=== PATIENT | male | born 1960 | race Caucasian/White ===

== ENCOUNTER → 2020-09-24 11:00 | Outpatient (CLI) | payer OTHER, SELFPAY ==
--- NOTE | ~2020-09-24 | CT_ITS ---
EXAMINATION: CT diagnostic chest wo con DATE: 09/24/2020 11:17 INDICATION: Localized swelling of the right side of the back TECHNIQUE: Computed tomography (CT) of the chest was performed without intravenous contrast. The dose -length product (DLP) was 262.96 mGy-cm. 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 COMPARISON: Radiographs dated 06/09/2018 FINDINGS: No suspicious CT correlate is identified in the marked area of swelling in the right back. There is a 3 mm nodule of the right upper lobe on image 49. There is mild emphysema. The lungs are fr ee of focal airspace opacities. There is no pleural effusion or pneumothorax. No pathologically enlar ged thoracic lymph nodes are identified. The heart size is normal. Calcified coronary artery atherosc lerosis is noted. There is mild circumferential wall thickening of the distal esophagus. Punctate iwona cifications in an otherwise normal spleen likely represent healed granulomatous disease. Severe lumba r spondylosis is noted. There are chronic mild compression deformities of the T4, T6, and T11 vertebr al bodies. There is also an old healed sternal manubrial fracture. IMPRESSION: 1. No CT correlate for the patient's symptoms. 2. Mild circumferential wall thickening of the esophagus. Correlate for reflux and esophageal symptom s. Consider endoscopy. 3. 3 mm nodule of the right upper lobe, likely old granulomatous disease. Consider follow-up CT in 12 months. Reviewed, dictated and finalized at location A. IMPRESSION: 1. No CT correlate for the patient's symptoms. 2. Mild circumferential wall thickening of the esophagus. Correlate for reflux and esophageal symptoms. Consider endoscopy. 3. 3 mm nodule of the right upper lobe, likely old granulomatous disease. Consi gurdeep follow-up CT in 12 months.
== END ==
PROVIDERS: PCP Pediatrics; Visit Provider Pediatrics
DX: R91.1 Solitary pulmonary nodule (principal)
CPT/HCPCS: 71250

== ENCOUNTER 2020-10-14 06:37 | Outpatient (CLI) | payer OTHER, SELFPAY ==
--- NOTE | ~2020-10-14 | MR_ITS ---
EXAMINATION: MR chest wo/w con DATE: 10/14/2020 08:59 INDICATION: Localized swelling/lump at the posterior right thorax. TECHNIQUE: Magnetic resonance imaging (MRI) of the right posterior and lateral chest was performed wi thout and with 16 mL Multihance intravenous contrast. A marker was placed over the mass. Sequences i ncluded axial, sagittal and coronal T1-weighted FSE and fluid sensitive FSE STIR, axial T1-weighted F S FSE and axial, sagittal and coronal T1-weighted FS FSE. COMPARISON: CT dated 09/24/2020 FINDINGS: Caudal to the inferior tip of the scapula is a 5.6 x 6.7 x 2.3 cm mass demonstrating homogeneous fat signal consistent with a lipoma located along the posterior margin of the right serratus anterior and deep to the latissimus dorsi muscle. There is no abnormal enhancing soft tissue component. No other masses identified. There is dependent atelectasis in the bilateral lower lobes. Heart size is normal. No pericardial effusion. There are few subcentimeter T2 hyperintense nonenhancing cysts in the bilat eral kidneys. Liver, spleen, pancreas and bilateral adrenal glands are normal. No pathologically enla rged thoracic or upper abdominal lymphadenopathy. Moderate upper lumbar spondylosis. IMPRESSION: 1. The palpable abnormality of concern corresponds to a 5.6 x 6.7 x 2.3 cm lipoma deep to the right l atissimus dorsi muscle. Reviewed, dictated and finalized at location A. IMPRESSION: 1. The palpable abnormality of concern corresponds to a 5.6 x 6.7 x 2.3 cm lipo ma deep to the right latissimus dorsi muscle.
[2020-10-14 07:25] LABS: Estimated Glomerular Filt Rate > 60
== END 2020-10-14 06:38 | disposition home or self-care (01) ==
LOC: ANHIMG 06:48
PROVIDERS: PCP Pediatrics; Visit Provider Pediatrics
DX: R22.2 Localized swelling, mass and lump, trunk (principal); N28.1 Cyst of kidney, acquired
CPT/HCPCS: 71552; A9577

== ENCOUNTER 2020-11-06 02:15 | Day surgery (SDC) | payer OTHER, SELFPAY ==
[2020-11-03 10:40] VITALS: BMI 24.9
[2020-11-06 07:49] VITALS: BP 154/88; PULSE 80; RESP 20; TEMP 36.8; O2SAT 100
[2020-11-06] MEDS: LACTATED RINGERS 1,000 ML 30 ML IV CONT (07:55)
--- NOTE | 2020-11-06 08:17 | WPDANESEPPF ---
Anes - Initial Pre Proc Eval Procedure: Operation Date: 11/06/20 09:30 Proposed Procedures p Excision Lipoma Right Posterior Lateral Chest Wall - Javid Younger MD Date/Time: 11/06/20 08:17 Surgeon: Javid Younger MD Pre Op Diagnosis: lipoma right posterior lateral chest Patient Data Age: 60 Gender: M Height: 1.83 m Weight: 80.7 kg Last Vital Signs Temp 36.8 C 11/06/20 07:49 Pulse 80 11/06/20 07:49 Resp 20 11/06/20 07:49 BP 154/88 H 11/06/20 07:49 Pulse Ox 100 11/06/20 07:49 Allergies Allergy/AdvReac Type Severity Reaction Status Date / Time No Known Allergies Allergy Verified 11/03/20 10:27 Home Medications Medication Instructions Recorded Confirmed Type ibuprofen 200 mg capsule 200 mg PO Q6H PRN 10/21/20 11/06/20 History sildenafil 50 mg tablet 50 mg PO WEEKLY PRN 10/21/20 11/06/20 History acetaminophen [Acetaminophen Extra 1,000 mg PO Q6H PRN 11/06/20 11/06/20 History Strength] Patient hx anesthesia problems: none Family hx anesthesia problems: none PMFSH Past Medical History Medical History COPD (chronic obstructive pulmonary disease) Surgical History Surgical History History of appendectomy Family History Family History Father , age 70 Acute myocardial infarction Mother , age 70 Acute myocardial infarction Other Heart disease Social History Social History Smoking packs per day: 1 Smoking cigarettes per day: 20.0 Years smoked: 48 Smoking pack-years: 48.00 Smoking status: Current every day smoker Tobacco type: cigarettes Second hand tobacco smoke exposure: Yes Alcohol intake: current Drinks per week: 24 Alcohol use details: BEER Substance use: never Living arrangements: with family 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 Questions were solicited and answers provided to the satisfaction of the patient/family/POA.
--- NOTE | 2020-11-06 08:46 | WPDHPUPDATE1 ---
History and Physical Update Update Date/Time: 11/06/20 08:46 History and Physical has been reviewed, including an updated exam of the patient. There are NO changes in the patient's condition. Risks, benefits, and alternatives have been discussed and questions answered. Patient agrees to proceed with procedure.
[2020-11-06] MEDS: BUPIVACAINE/EPINEPHRINE 0.5% 10 ML VIAL 20 ML INFILTRATE (09:07)
--- NOTE | 2020-11-06 09:59 | P.OP_ITS ---
Procedure Note - Detailed Date of Procedure 11/06/20 Pre-op Diagnosis submuscular lipoma right posterior lateral chest Post-op Diagnosis same Procedure Performed excision of submuscular lipoma 8 x 7 x 2 cm right posterior back. Surgeon Javid Younger MD Assistant Professor Of Chemistry LEONIDAS Christensen, OR 1st assist Anesthesia general ( Via LMA) Indications The patient has developed a movable soft mass deep to the muscle on his right posterior back which is causing him discomfort with lifting Findings a soft pliable apparent lipoma deep to the latissimus baeza muscle right posterior back Description of Procedure The patient was brought to the operating room and placed in the left lateral decubitus position with both arms out on arm boards on the operating table. Following the induction of general LMA anesthesia patient was positioned as noted above and time-out was performed confirming patient and site of surgery after a prep and drape with chlorhexidine. The site of the lipoma on his right posterior back laterally was well exposed. Following this local anesthetic was instilled along a curvilinear line outlined directly over the palpable movable mass. We made an approximate 10 cm incision and carried this down through the subcutaneous tissues and through the initial fascia over the latissimus dorsi muscle. We then carefully palpated it and it seemed like the lipoma was still directly below so I split the muscle for about 4 cm in length at this area and then we were able to grasp the underlying lipoma and gradually dissected it out from underneath the muscle. Upon removal it measured 8 x 7 x 2 cm in size. There were multiple small feeding vessels that were cauterized underneath it. There was 1 larger vessel that was suture ligated with a 3-0 Vicryl as we excised the lesion. We rechecked hemostasis and injected more local anesthetic at this point. Following this closure was begun after passing the specimen off the field. Closure was obtained by reapproximating the muscle and its fascia with a running 0 Vicryl suture the superficial fascia just underneath the subcutaneous fat was also approximated in a running running manner with the 0 Vicryl. Following this multiple interrupted 3 0 Vicryl were placed in subcutaneous tissues and a running subcuticular closure of 4 0 on diet Monocryl was accomplished. Following this wound was clean dried and surgical glue applied. Estimated blood loss about 5 cc The patient tolerated procedure well. Implants None Estimated Blood Loss 5 Drains No Packing No Pathology yes ( lipoma) Complications No immediate complications Condition stable Disposition PACU
[2020-11-06 10:08] VITALS: BP 107/67; PULSE 68; RESP 13; O2SAT 96
[2020-11-06 11:01] VITALS: BP 153/94; PULSE 61; RESP 16
== END 2020-11-06 11:16 | disposition home or self-care (01) ==
PROVIDERS: PCP Pediatrics; Visit Provider Surgery
PROC: (CPT 21554; principal; 2020-11-06 09:30)
DX: D17.1 Benign lipomatous neoplasm of skin and subcutaneous tissue of trunk (principal); J44.9 Chronic obstructive pulmonary disease, unspecified; K22.8 Other specified diseases of esophagus; F17.210 Nicotine dependence, cigarettes, uncomplicated
CPT/HCPCS: 21554; 88304; J2704; J3010; J7120

== ENCOUNTER 2023-11-10 14:01 | Outpatient (CLI) | payer OTHER, SELFPAY ==
--- NOTE | ~2023-11-10 | MR_ITS ---
EXAMINATION: MR lumbar spine wo con DATE: 11/10/2023 14:39 INDICATION: Lumbar spinal stenosis. Low back pain. TECHNIQUE: Magnetic resonance imaging (MRI) of the lumbar spine was performed without intravenous con trast. Sequences included sagittal T2-weighted FSE, sagittal T2-weighted FS FSE, sagittal T1-weighted FSE, and axial T2-weighted FSE. COMPARISON: Lumbar spine CT 12/14/21 FINDINGS: There is 9 degrees dextrocurvature of thoracolumbar spine. There is 3 mm anterolisthesis of L4 on L5. Vertebral body heights are normal. There is severely decreased disc height at L1-L2 and L2 -L3, mildly decreased disc height at L4-L5, and moderately decreased disc height at L5-S1. The distal spinal cord signal intensity is normal. The conus medullaris is at L1. The following disc levels are specifically discussed: L1-L2: The disc is bulging with superimposed central extrusion. There is severe bilateral facet joint osteoarthritis. There is mild bilateral neural foraminal stenosis. There is mild central canal steno sis. L2-L3: The disc is bulging and has an annular fissure. There is severe bilateral facet joint osteoart hritis. There is mild bilateral neural foraminal stenosis. There is mild central canal stenosis. L3-L4: The disc is bulging. There is severe bilateral facet joint osteoarthritis. There is mild bilat eral neural foraminal stenosis. There is no central canal stenosis. L4-L5: The disc is bulging and has an annular fissure. There is severe bilateral facet joint osteoart hritis. There is moderate bilateral neural foraminal stenosis. There is mild central canal stenosis. L5-S1: The disc is bulging and has an annular fissure. There is severe bilateral facet joint osteoart hritis. There is moderate bilateral neural foraminal stenosis. There is mild central canal stenosis. IMPRESSION: 1. Severe lumbar spondylosis. Reviewed, dictated and finalized at location E.
== END 2023-11-10 14:02 ==
PROVIDERS: PCP Family Medicine; Visit Provider Family Medicine
DX: M48.061 Spinal stenosis, lumbar region without neurogenic claudication (principal); M43.06 Spondylolysis, lumbar region
CPT/HCPCS: 72148

== ENCOUNTER 2024-02-09 13:43 | Outpatient (CLI) | payer OTHER, SELFPAY ==
--- NOTE | ~2024-02-09 | US_ITS ---
EXAMINATION: US arterial ankle brachial ind DATE: 02/09/2024 14:34 INDICATION: Paresthesias. TECHNIQUE: Segmental pressures and plethysmographic and Doppler waveforms of the brachial and lower e xtremity arteries were obtained. COMPARISON: None. FINDINGS: Right and left brachial artery pressures of 149 mm Hg and 154 mm Hg, respectively, are concordant (no rmal difference <= 30 mmHg). The right ankle-brachial index (ZEYAD) is 1.05 (normal >= 0.9-1.0). The right great toe-brachial index (TBI) is 0.69 (normal >= 0.65). Arterial Doppler waveforms are monophasic in posterior tibial artery and triphasic in dorsalis pedis. The left ZEYAD is 1.13. The left TBI is 0.68. Arterial Doppler waveforms are biphasic in posterior tibi al artery and monophasic in dorsalis pedis. IMPRESSION: 1. No significant arterial occlusive disease. Reviewed, dictated and finalized at location A.
== END 2024-02-09 13:44 | disposition home or self-care (01) ==
LOC: ANHIMG 13:53
PROVIDERS: PCP Family Medicine; Visit Provider Pediatrics
DX: R20.2 Paresthesia of skin (principal); R09.89 Other specified symptoms and signs involving the circulatory and respiratory systems
CPT/HCPCS: 93922

== ENCOUNTER 2024-06-27 11:40 | Outpatient (CLI) | payer OTHER, SELFPAY ==
[2024-06-27 13:41] LABS: Mean Corpuscular HGB Conc 33.3 g/dl (32-36); Mean Corpuscular Hemoglobin 32.7 pg (26-34); Mean Platelet Volume 8.9 fl (7.4-10.4); Platelet Count Result 237 k/mm3 (150-375); Red Blood Count 5.51 M/mm3 (4.6-6.20); Red Cell Distribution Width 13.2 % (11.5-14.5); White Blood Count 9.4 K/mm3 (4.5-10.0)
[2024-06-27 13:55] LABS: Alanine Aminotransferase 23 U/L (6-50); Albumin Level 4.9 g/dL (3.5-5.1); Alkaline Phosphatase 62 U/L (38-126); Anion Gap 13 mmol/L (4-12); Aspartate Amino Transferase 33 U/L (17-59); Bilirubin,Total 0.8 mg/dL (0.2-1.3); Blood Urea Nitrogen 15 mg/dL (9-20); CRP < 0.5 mg/dL (<1.0); Carbon Dioxide 25 mmol/L (22-30); Chloride 101 mmol/L (98-107); Estimated Glomerular Filt Rate > 60; Glucose 101 mg/dL (65-110); Potassium 4.6 mmol/L (3.4-5.0); Sodium 139 mmol/L (137-145)
[2024-06-27 14:20] LABS: Urine Cotinine POSITIVE
== END 2024-06-27 11:41 | disposition home or self-care (01) ==
LOC: ANHSURGERY 11:44
PROVIDERS: PCP Family Medicine; Visit Provider Orthopaedic Surgery
DX: M25.512 Pain in left shoulder (principal); R94.31 Abnormal electrocardiogram [ECG] [EKG]
CPT/HCPCS: 71046; 80053; 80307; 85027; 86140; 93005

== ENCOUNTER 2024-07-10 00:31 | Day surgery (SDC) | payer OTHER, SELFPAY ==
--- NOTE | 2024-06-27 11:47 | PC.NURSE ---
Report to the Outpatient Waiting Room, entrance under the green pavilion located off [facility], at time _6 AM on date _07/10/24 . Planned Procedure Time: ___7:30 AM .? Time changes happen often and if your time is changed the preop area will call you the afternoon before. - You and your visitor will be asked to self-screen and do not enter if you have any COVID symptoms. Please call surgeon if you need to reschedule. - A mask is optional within the hospital at this time. Patients may have clear liquids (water, carbonated beverages, clear teas, apple juice) until 3 hours prior to surgery ( 4:30 AM) with a maximum of 20 ounces. - No food from midnight until time of surgery and no smoking, or chewing tobacco (or any form of nicotine). No chewing gum, candy or mints. - Take only the following medications with a SIP of water on the morning of surgery: _INHALER IF NEEDED,HYDROCODONE IF NEEDED DO NOT STOP ANY OF YOUR OTHER PRESCRIPTION MEDICATIONS PRIOR TO SURGERY EXCEPT THE FOLLOWING Hold all vitamins and supplements for 3 days per anesthesiologist. Medications to discontinue per physician ____IBUPROFEN PER DR KIRBY Date to take last dose Please no make-up, nail beninese, hairspray, perfume, deodorant, or body powder the day of surgery.? No jewelry (including any body piercings) or valuables the day of surgery, leave them at home.? Please take a shower or bath the night before, or the morning of, surgery with an antibacterial soap.? Wear comfortable, loose fitting clothing.? Children are encouraged to wear pajamas. - Jewelry must be removed prior to entering the operating room.? Rings and piercings that are not removed may be cut off. - The hospital will not accept responsibility for valuables.? - Please leave all valuables, including medications, at home the day of surgery. If you are going home after surgery, a licensed haul driver must drive you home.? - NO public transportation without another adult if you receive anesthesia. - We recommend that an adult stay with you for 24 hours following discharge. - We also recommend that you do not drive, make important decision, drink alcoholic beverages, or take any drugs that were not prescribed by your health care provider for at least 24 hours after your discharge time. Follow any additional instructions given to you from your surgeon. VERBAL AND WRITTEN instructions given to __PATIENT_AND BE and asked if any additional questions and then verbalized understanding. Patient advised to call surgeon office or pre surgery nurse liaison [phone] if any additional questions.
[2024-06-27 11:49] VITALS: BMI 25.0
[2024-06-27 12:38] VITALS: BP 170/93; PULSE 79; RESP 18; TEMP 36.7; O2SAT 97
[2024-07-10] VITALS (12 sets, daily range): BP systolic 96–171; BP diastolic 62–99; PULSE 62–81; RESP 10–20; TEMP 36.3–36.4; O2SAT 92–100
--- OUTSIDE RECORDS SUMMARY | 2024-07-10 00:34 | XMS_ITS | Clinical Summary ---
Author Organization [facility] Address [address] [place] [address] Care Team Providers Care Material Planner Name Role Phone Cesar Matta MD Primary Care Provider Allergies Active Allergy Reactions Criticality Noted Date Comments Tramadol Contact Dermatitis 06/27/2014 Medications sildenafil 50 MG tablet TAKE ONE TABLET BY MOUTH APPROXIMATELY 30-60 MINUTES BEFORE SEXUAL ACTIVITY. 2 Active cyclobenzaprin e 10 MG tablet Take 10 mg by mouth 3 (three) times daily as needed. 2 Active lisinopril 10 MG tablet Take 10 mg by mouth daily. 2 Active HYDROcodone-ac etaminophen (NORCO) 5-325 MG tabletIndicati ons:Chronic Pain Take 1 tablet by mouth every 4 (four) hours as needed. Indications: Chronic Pain 30 tablet 2 Active meloxicam (MOBIC) 15 MG tablet Take 1 tablet (15 mg total) by mouth daily. 30 tablet 4 Active methylPREDNISo CHRISTIAN ramsey, (MEDROL DOSEPAK) 4 MG tablet Take 1 tablet (4 mg total) by mouth 2 (two) times daily. Follow package directions 1 each 4 Active Active Problems Problem Noted Date Diagnosed Date Status post lumbar laminectomy 01/04/2022 Low back pain with radiation 12/02/2021 Spinal stenosis of lumbar re gion with neurogenic claudication 12/02/2021 Pain in joint, shoulder region 06/27/2014 Overview (12/06/2021): Date Onset: 08/19/2011 Hepatitis C infection 07/16/2011 Overview (12/06/2021): Note: Dr. Del Valle Date Onset: 08/2005 Pulmonary emphysema ([facility]) 07/16/2011 Overview (12/06/2021): Note: Dr. Garcia Date Onset: 06/2005 Note: Dr. Gacria Date Onset: 06/2005 Immunizations Name Administration Dates Next Due Influenza (Generic) 02/11/2016 Influenza Adult (Generic) 02/12/2021,01/02/2020, 02/16/2019 Social History Tobacco Use Types Packs/Day Years Used Date Smoking Tobacco: Every Day Cigarettes Smokeless Tobacco: Never Tobacco Cessation:Ready to Q uit: No; Counseling Given: Yes Comments:Patient education Alcohol Use Standard Drinks/Week Comments Yes 10 (1 standard drink = 0.6 oz pu re alcohol) daily PHQ-2 Answer Date Recorded PHQ-2 Score - If the patient scores above 3, please move on to questions 3-9 0 01/04/2022 Sex and Gender Information Value Date Recorded Sex Assigned at Not on file Legal Sex Male 7:16 PM CDT Gender Identity Not on file Sexual Orientation Not on file Last Filed Vital Signs Vital Sign Reading Time Taken Comments Blood Pressure 156/99 02/19/2024 4:15 PM CDT Pulse 88 02/19/2024 4:15 PM CDT Temperature 36.7 C (98 F) 02/19/2024 4:15 PM CDT Respiratory Rate 18 02/19/2024 4:15 PM CDT Oxygen Saturation 99% 02/19/2024 4:15 PM CDT Inhaled Oxygen Concentration - - Weight 81.3 kg (179 lb 3.7 oz) 02/19/2024 4:15 P M CDT Height 182.9 cm (6') 02/19/2024 4:15 PM CDT Body Mass Index 24.31 02/19/2024 4:15 PM CDT Plan of Treatment Health Maintenance Due Date Last Done Comments Colorectal Cancer Screening Colonoscopy (10 Years) 1959 Pneumococcal Vaccine: 65+ Years (1 of 2 - PCV) 1965 Pneumococcal Vaccine: Pediatrics (0 to 5 Years) and At-Risk Patients (6 to 64 Years) (1 of 2 - PCV) 1965 DTaP, Tdap and Td Vaccines (1 - Tdap) 1978 Zoster Vaccines (1 of 2) 2009 RSV Immunization or 60+ Years (1 - Risk 60-74 years 1-dose series) 2019 COVID-19 Vaccine (3 - season) 2023 08/15/2020, 07/18/2020 Influenza Adult (#1) 2024 02/12/2021, 01/02/2020, 02/16/2019, Additional history exists AAA SCREENING 02/27/2024 Hepatitis C Completed 04/19/2023, 03/31, 02/04/2022, Additional history exists Meningococcal B Vaccine Aged Out No l onger eligible based on patient's age to complete this topic Meningococcal Vaccine Aged Out No mayank mary eligible based on patient's age to complete this topic RSV Immunizations Under 20 Months Aged Out No longer eligible based on patient's age to complete this topic Goals Goal Patient Goal Type Associated Problems Recent Progress Patient-Stated? Author Patient will return to prior living situation and remain independent in ADLs upon discharge from hospital Lifestyle No Renee Camp RN Insurance [employer] Advance Directives * Full Code (Latest Code Status on File) Date Activated Date Inactivated Comments 12/20/2021 2:34 PM 12/21/2021 1:25 PM Care Teams Material Planner Relationship Specialty Start Date End Date Cesar Matta MD [address] [place] [address] PCP - General PEDIATRICS 07/27/21
--- OUTSIDE RECORDS SUMMARY | 2024-07-10 00:34 | XMS_ITS ---
Author Organization Unknown Address [address] [place] [phone] Phone Care Team Providers Care Financial Analysis Manager Name Role Phone RICARDO MOORE Attending Unavailable ER PHYSICIAN Secondary Unavailable Social History Type Status Start Date End Date Code Code Syst em Sex Male Hospital Discharge Instructions Should you have any questions prior to discharge, please contact a member of your healthcare team. If you have left the hospital and have any questions, please contact your primary care physician. Reason For Referral No Data Found Procedures Procedure Name Date Status Code Code Syste m Simple repair of superficial wounds of scalp, neck, axillae, external farshad 06/30/2022 completed 36330 CPT Plan of Treatment No Data Found Encounters Encounter Diagnosis Start Date Code Code Sys tem Laceration with foreign body of left hand, initial encounter 06/30/2022 SNOMED-CT Personal Care Team Section Performer Name Performer Role Active Date Inactive Da te
--- OUTSIDE RECORDS SUMMARY | 2024-07-10 00:34 | XMS_ITS ---
Author Organization [facility] Address [address] [place] [address] Care Team Providers Care Senior Technologist Name Role Phone Cesar Matta Primary Care Provider [phone] SterlingIsma melgar Unavailable [phone] Results Component Value Reference Range Notes Covid DNA Alere Reviewed date:06/10/2024 12:49:55 PM Interpretation:Negative Performing Lab: Notes/Report: Negative Influenza DNA A/B Alere Reviewed date:06/10/2024 12:49:55 PM Interpretation:Negative Performing Lab: Notes/Report: Negative REASON FOR VISIT Spot 5 Cough [phone] Medications Medication SIG (Take, Route, Frequency, Duration) Notes Start Date End Date Status methylPREDNISolone 4 MG as directed on package Orally daily; Duration: 6 days 06/05/2024 Active Meloxicam 15 MG 1 Oral every day; Duration: 0 11/08/2023 Not-Taking Azithromycin 250 MG 2 tablets the first day, then take 1 tablet daily for 4 days Orally daily; Duration: 5 days 06/05/2024 06/10/2024 Active Albuterol Sulfate HFA 108 (90 Base) MCG/ACT 2 puffs as needed Inhalation every 4 hrs; Duration: 30 days 06/05/2024 Active Percocet 5-325 MG 1 Oral Q6H; Duration: 0 02/20/2024 Not-Taking Aspirin Adult Low Strength 81 MG 1 Oral every day; Duration: 11/08/2023 11/01/2024 Active Lisinopril 20 MG 1 tablet Orally Once a day Active Rosuvastatin Calcium 10 MG 1 Oral every evening; Duration: 11/08/2023 11/01/2024 Active Vital Signs Temperature 97.5 degrees Fahrenheit 06/05/19 25 Heart Rate 75 /min 06/05/2024 Height 72.00 in 06/05/2024 Oximetry 99 % 06/05/2024 Height-cm 182.88 cm 06/05/2024 Encounters Encounter Location Date Provider Diagnosis [address] [address] 06/05/2024 Isma VillegasSterling Acute cough R05.1 and Emphysema, unspecified J43.9 Assessments Encounter Date Diagnosis (ICD Code) Assessment Notes Treatment Notes Treatment Clinical Notes 06/05/2024 Acute cough (ICD-10 - R05.1) 06/05/2024 Emphysema, unspecified (ICD-10 - J43.9) Initate steroid taper, azithromycin, and albuterol inhaler. In acute exacerbation. Discussed risk and benefit of meds. Patient stopped smoking 3 weeks ago to be able to undergo upcoming procedure, recommend continuing cessation s/p surgery. Call or return for worsening symptoms with treatment. Plan Of Treatment Medication Medication Name Sig Start Date Stop Date Notes methylPREDNISolone 4 MG as directed on p ackage Orally daily; Duration: 6 days 06/05/2024 Azithromycin 250 MG 2 tablets the first day, then take 1 tablet daily for 4 days Orally daily; Duration: 5 days 06/05/2024 06/10/2024 Albuterol Sulfate HFA 108 (9 0 Base) MCG/ACT 2 puffs as needed Inhalation every 4 hrs; Duration: 30 days 06/05/2024 Treatment Notes Assessment Notes Emphysema, unspecified Initate steroid t aper, azithromycin, and albuterol inhaler. In acute exacerbation. Discussed risk and benefit of meds. Patient stopped smoking 3 weeks ago to be able to undergo upcoming procedure, recommend continuing cessation s/p surgery. Call or return for worsening symptoms with treatment. History and Physical Notes * Examination Category Sub-Category Detail Notes General Examination General appearance: alert, p leasant, well-nourished and in no acute distress Eyes: both eyes, extraocul ar movement intact (EOMI), conjunctiva clear Ears: both ears, tympanic membrane intact and clear Nose: nares patent, no les ions Throat: clear, no erythema Heart: regular rate and rhy thm without murmurs, gallops, clicks or rubs Lungs: diffuse wheezing and diminished sounds in bilateral bases Skin: warm and dry; good s kin turgor Lymph nodes: no cervical lymphade nopathy Oral cavity: normal Progress Notes * FORSEE, WalterDOB:1960 (64 yo M)Acc No.[id number]:06/05/2024 Patient: Daniele Faulkner Provider: SUZE Henriquez :1960 A ge:64 Y S ex:Male Date:06/05/2024 Phone: Address:[facility] [address] [place] [address] Pcp:Cesar Matta Subjective: * Chief Complaints: * S pot 5 Cough [phone] * HPI: C ough: Pt presents today with complaints of a cough. This cough started 3 days ago. Pt also mentions nasal congestion, and an irritated throat. Pt explains that the cough is non productive but does cause him to choke up pretty badly. He denies trying to take any OTC meds to help with relief. * Medications: T akingLisinopril 20 MG Tablet 1 tablet Orally Once a day Rosuvastatin Calcium 10 MG Tablet 1 Oral every evening , stop date 11/01/2024spirin Adult Low Strength 81 MG Tablet Delayed Release 1 Oral every day , stop date 11/01/2024Taking Lisinopril 20 MG Tablet 1 tablet Orally Once a day Taking Rosuvastatin Calcium 10 MG Tablet 1 Oral every evening , stop date 11/01/2024Taking Aspirin Adult Low Strength 81 MG Tablet Delayed Release 1 Oral every day , stop date 11/01/2024Not-TakingMeloxicam 15 MG Tablet 1 Oral every day Percocet 5-325 MG Tablet 1 Oral Q6H Medication List reviewed and reconciled with the patientNot-Taking Meloxicam 15 MG Tablet 1 Oral every day Not-Taking Percocet 5-325 MG Tablet 1 Oral Q6H Medication List reviewed and reconciled with the patient Objective: * Vitals: H R:75/min, Temp:97.5F, Oxygen sat %:99%, Ht: 72.00 in, Ht-cm: 182.88 cm. * Examination: G eneral Examination: General appearance: a lert, pleasant, well-nourished and in no acute distress. Eyes: b oth eyes, extraocular movement intact (EOMI), conjunctiva clear. Ears: b oth ears, tympanic membrane intact and clear. Nose: n terence patent, no lesions. Oral cavity: n ormal. Throat: c lear, no erythema. Lymph nodes: n o cervical lymphadenopathy. Skin: w arm and dry; good skin turgor. Heart: r egular rate and rhythm without murmurs, gallops, clicks or rubs. Lungs: d iffuse wheezing and diminished sounds in bilateral bases. Assessment: * Assessment: 1. A cute cough - R05.1 (Primary) 2 . E mphysema, unspecified - J43.9 ? S pecify :Src Problem: Emphysema/COPD Plan: * Treatment: 2. E mphysema, unspecified Notes: Initate steroid taper, azithromycin, and albuterol inhaler. In acute exacerbation. Discussed risk and benefit of meds. Patient stopped smoking 3 weeks ago to be able to undergo upcoming procedure, recommend continuing cessation s/p surgery. Call or return for worsening symptoms with treatment. Billing Information: * Visit Code: 09337 OFFICE VISIT LOW. * Procedure Codes: * SHOVEL OPERATOR Sign off status: Completed true * Provider: SUZE Henriquez Date: 0 06/05/2024 Generated for Kina del valle/Dashawn/Al on: 0 07/10/2024 12:34 AM CDT
--- OUTSIDE RECORDS SUMMARY | 2024-07-10 00:35 | XMS_ITS ---
Author Organization [facility] Address [address] [place] [id number] Care Team Providers Care Manager Store Name Role Phone Cesar Matta Primary Care Provider [phone] REASON FOR VISIT Pre-Op Clearance Encounters Encounter Location Date Provider Diagnosis [address] [address] 05/14/2024 Cesar Matta Plan Of Treatment No Information Progress Notes * Daniele YEEDOB:1960 (64 yo M)Acc No.[id number]:05/14/2024 Patient: Harry ONOFRE Daniele :1960 A ge:64 Y S ex:Male Phone: Address:[address] [place], [address] * true * Date: Generated for Kina del valle/Dashawn/eTransmitting on: 0 07/10/2024 12:35 AM CDT
--- OUTSIDE RECORDS SUMMARY | 2024-07-10 00:35 | XMS_ITS ---
Author Organization [facility] Address [address] [place] [id number] Care Team Providers Care Aesthetics Instructor Name Role Phone Cesar Matta Primary Care Provider [phone] Veronica Adler Unavailable [phone] Allergies Allergen (clinical drug ingredient) Drug/Non Drug Allergy documented on EMR Reaction Allergy Type Onset Date Status atorvastatin Atorvastatin Unknown Drug Allergy 06/19/2023 Active tramadol traMADol Unknown Drug Allergy 09/21/2020 Active REASON FOR VISIT workman comp, needs approved for surgery Medications Medication SIG (Take, Route, Frequency, Duration) Notes Start Date End Date Status Aspirin Adult Low Strength 81 MG 1 Oral every day; Duration: 90 11/08/2023 11/01/2024 Active Percocet 5-325 MG 1 Oral Q6H; Duration : 0 02/20/2024 Not-Taking Rosuvastatin Calcium 10 MG 1 Oral every evening; Duration: 90 11/08/2023 11/01/2024 Active Lisinopril 20 MG 1 tablet Orally Once a day Active Meloxicam 15 MG 1 Oral every day; Duration: 0 11/08/2023 Active Vital Signs Temperature 98.4 degrees Fahrenheit 05/14/19 25 Blood pressure systolic 134 mm Hg 05/14/19 25 Blood pressure diastolic 80 mm Hg 025 Heart Rate 74 /min 05/14/2024 Height 72.00 in 05/14/2024 Weight 180 lbs 05/14/2024 BMI 24.41 kg/m2 05/14/2024 Oximetry 98 % 05/14/2024 Height-cm 182.88 cm 05/14/2024 Weight-kg 81.65 kg 05/14/2024 Encounters Encounter Location Date Provider Diagnosis [address] [address] 05/14/2024 Veronica Adler Pain in left shoulde r M25.512 and Complete tear of left rotator cuff, unspecified whether traumatic M75.122 Assessments Encounter Date Diagnosis (ICD Code) Assessment Notes Treatment Notes Treatment Clinical Notes 05/14/2024 Pain in left shoulder (ICD-10 - M25.512) 05/14/2024 Complete tear of left rotator cuff, unspecified whether traumatic (ICD-10 - M75.122) - Current medications include lisinopril for blood pressure, rosuvastatin for cholesterol, baby aspirin, and meloxicam for pain. Allergic reactions to tramadol (hives) and atorvastatin (muscle pain) noted. - Discussed with patient that its best practice to stop taking Aspirin 3-7 days before surgery date and to stop taking Meloxicam 48 hours before surgery date. Encouraged to discuss this with surgeon as well prior to surgery date whenever this is determined. - Complete tear of the left rotator cuff. Surgery is required as physical therapy is not deemed beneficial for a full tear.- Cleared for surgery on my standpoint. Complete history and physical documentation completed to be faxed to [facility] and [facility] in [place]. - Monitor for any changes or additional requirements from [facility] or the surgeon. Plan Of Treatment Treatment Notes Assessment Notes Complete tear of left rotato r cuff, unspecified whether traumatic - Current medications include lisinopril for blood pressure, rosuvastatin for cholesterol, baby aspirin, and meloxicam for pain. Allergic reactions to tramadol (hives) and atorvastatin (muscle pain) noted. - Discussed with patient that its best practice to stop taking Aspirin 3-7 days before surgery date and to stop taking Meloxicam 48 hours before surgery date. Encouraged to discuss this with surgeon as well prior to surgery date whenever this is determined. - Complete tear of the left rotator cuff. Surgery is required as physical therapy is not deemed beneficial for a full tear.- Cleared for surgery on my standpoint. Complete history and physical documentation completed to be faxed to [facility] and [facility] in [place]. - Monitor for any changes or additional requirements from [facility] or the surgeon. History and Physical Notes * HPI (History of Present Illness) Category Sub-Category Detail Notes Shoulder pain / injury Shoulder pain is in the l eft shoulder Examination Category Sub-Category Detail Notes Left shoulder Inspection: normal, without deformity, swelling, ecchymosis, or atrophy Motor function: motor strength and t one is 3/5 Palpation: pain with resisted a bduction and adduction Stability: stable joint without subluxation or laxity Tests and signs: positive Neer and Cardenas wkin's sign Shoulder range of motion: partial active and passive range of motion with difficulty due to pain General Examination General appearance: alert, p leasant, well-nourished and in no acute distress Ears: both ears, normal, a uditory canal clear, tympanic membranes normal Nose: nares patent, no les ions Throat: clear, no erythema, no exudate, pharynx normal, uvula midline Neck / thyroid: neck is supple with no cervical lymphadenopathy, normal thyroid size and shape without nodules, or tenderness, trachea midline Heart: regular rate and rhy thm Lungs: clear to auscultatio n bilaterally, with good air movement and no rales, rhonchi or wheezes Abdomen: soft with good bowel sounds, nontender, and no masses or hepatosplenomegaly Neurologic: alert and oriented, cooperative with exam, neck is supple without rigidity or tremor, normal exam with no motor or sensory deficits Skin: warm and dry; good s kin turgor Extremities: normal extremity wit h no clubbing, cyanosis or edema Peripheral pulses: 2+ posterior tibial, 2+ radial Psych: normal affect / mood , with good judgement and insight Oral cavity: normal, mucosa moist , tongue is midline, lips benign Progress Notes * Daniele YEEDOB:1960 (64 yo M)Acc No.[id number]:05/14/2024 Patient: Daniele Faulkner Provider: Brandy Adler NP :1960 A ge:64 Y S ex:Male Date:05/14/2024 Phone: Address:[facility] [address] [facility] Pcp:Cesar Matta Subjective: * Chief Complaints: * 1 . Workman comp, needs approved for surgery. * HPI: H PI: Daniele is here today for surgical pre-op clearance for a left shoulder injury that occured at work on Oc2023 and is needing shoulder surgery for repair. He is currently dealing with a left shoulder rotator cuff tear, which is a workman's compensation case. He received a steroid injection with fluid aspiration to the left shoulder in 2023 by the Orthopedic surgeon at [facility] in [place]. He is currently taking Lisinopril for blood pressure control, Rosuvastatin for cholesterol, a baby aspirin, and Meloxicam pain daily. He has allergies to Tramadol, which causes hives, and Atorvastatin, which causes muscle pain. Daniele smokes cigarettes daily and is aware that he might need to stop smoking before surgery. He denies any previous complications from presvious surgeries including anesthesia problems, post-op nausea or vomiting, post-op pain intolerances. He denies any past history of difficuly intubation/extubation while under anesthesia. He is not on any anticoagulants, but takes Aspirin daily. He is eager to have the surgery done to return to normalcy, as the current situation is affecting his daily life. [facility] pain / injury: Shoulder pain is in the l eft shoulder . THIS IS A WORKMAN'S COMP CASE. Patient referred to [facility] in [place] on 04/09 due to left rotator cuff tear for surgical repair. * ROS: G eneral / Constitutional: Patient denies c hange in appetite, fever, weakness. ? O phthalmologic: Patient denies b lurry vision, discharge, red eye(s). ? E NT: Patient denies d ry mouth, difficulty in swallowing, sore throat. R espiratory: Patient denies c ough, hemoptysis, shortness of breath, sputum production, wheezing. C ardiovascular: Patient denies c hest pain, difficulty laying flat, palpitations, swelling in hands / feet. P atient complains of h igh blood pressure. ? G astrointestinal: Patient denies a bdominal pain, blood in stool, constipation, nausea, vomiting, diarrhea, heartburn. H ematology: Patient denies a nemia, easy bleeding, bleeding problems, easy bruising. G enitourinary: Patient denies d ifficulty urinating, blood in the urine.? M usculoskeletal: Patient complains of l eft shoulder pain, swelling, decreased ROM and left arm weakness. P eripheral Vascular: Patient denies d ecreased sensation in extremities, painful extremities. S kin: Patient denies i tching, rash. N eurologic: Patient denies d izziness, headache, tremor. P atient complains of n umbness/tingling down left arm from shoulder . P sychiatric: Patient denies s ubstance abuse, loss of appetite. ? * Surgical History: * Social History: M igrated Social History: M igrated Social History: Marital status:,Alcohol Misuse:Yes ,notes : History of alcoholism,Alcohol history:Patient stopped 06/2013. * Medications: T aking Lisinopril 20 MG Tablet 1 tablet Orally Once a day , Taking Rosuvastatin Calcium 10 MG Tablet 1 Oral every evening , stop date 11/01/2024, Taking Aspirin Adult Low Strength 81 MG Tablet Delayed Release 1 Oral every day , stop date 11/01/2024, Taking Meloxicam 15 MG Tablet 1 Oral every day , Not-Taking Percocet 5-325 MG Tablet 1 Oral Q6H , Medication List reviewed and reconciled with the patient * Allergies: A torvastatin: Allergy - Onset Date 06/19/2023, traMADol: Allergy - Onset Date 09/21/2020. Allergies Verified. Objective: * Vitals: B P:134/80mm Hg, HR:74/min, Temp:98.4F, Oxygen sat %:98%, Ht: 72.00 in, Wt:180lbs, Wt-k.65 kg, Ht-cm: 182.88 cm, BMI:24.41Index, Body Surface Area: 2.03. * Examination: G eneral Examination: General appearance: a lert, pleasant, well-nourished and in no acute distress. Ears: b oth ears, normal, auditory canal clear, tympanic membranes normal. Nose: n terence patent, no lesions. Oral cavity: n ormal, mucosa moist, tongue is midline, lips benign. Throat: c lear, no erythema, no exudate, pharynx normal, uvula midline. Neck / thyroid: n bertha is supple with no cervical lymphadenopathy, normal thyroid size and shape without nodules, or tenderness, trachea midline. Skin: w arm and dry; good skin turgor. Heart: r egular rate and rhythm. Lungs: c lear to auscultation bilaterally, with good air movement and no rales, rhonchi or wheezes. Abdomen: s oft with good bowel sounds, nontender, and no masses or hepatosplenomegaly. Extremities: n ormal extremity with no clubbing, cyanosis or edema. Peripheral pulses: 2 + posterior tibial, 2+ radial. Neurologic: a lert and oriented, cooperative with exam, neck is supple without rigidity or tremor, normal exam with no motor or sensory deficits. Psych: n ormal affect / mood, with good judgement and insight. L eft shoulder: Inspection: n ormal, without deformity, swelling, ecchymosis, or atrophy. Palpation: p ain with resisted abduction and adduction.? Shoulder range of motion: p artial active and passive range of motion with difficulty due to pain. Motor function: m otor strength and tone is 3/5. Stability: s table joint without subluxation or laxity.? Tests and signs: p ositive Neer and Hawkin's sign. ? Assessment: * Assessment: 1. C omplete tear of left rotator cuff, unspecified whether traumatic - M75.122 (Primary) ? 2 . P ain in left shoulder - M25.512 S pecify :Src Problem: Left shoulder pain Plan: * Treatment: Billing Information: * Visit Code: 08873 OFFICE VISIT MODERATE. * Procedure Codes: * ED PROGRAM TEACHER Sign off status: Completed true * Provider: Brandy Adler NP Date: 0 05/14/2024 Generated for Kina del valle/Dashawn/Moneitting on: 0 07/10/2024 12:35 AM CDT
--- OUTSIDE RECORDS SUMMARY | 2024-07-10 00:35 | XMS_ITS | Clinical Summary ---
Author Organization [facility] Address [address] [place] [address] Phone Care Team Providers Care Team Assembly Line Machine Operator Name Role Phone Provider, None Primary Care Provider Unavailabl e Allergies No known active allergies Medications ibuprofen (MOTRIN) 800 MG Tablet Take 800 mg by mouth every 8 hours as needed. Active Social History Tobacco Use Types Packs/Day Years Used Date Smoking Tobacco: Every Day Cigarettes 1 45 Smokeless Tobacco: Never Alcohol Use Standard Drinks/Week Comments Yes 5 (1 standard drink = 0.6 oz pur e alcohol) Sex and Gender Information Value Date Recorded Sex Assigned at Not on file Legal Sex Male 10:27 AM CDT Gender Identity Not on file Sexual Orientation Not on file Last Filed Vital Signs Vital Sign Reading Time Taken Comments Blood Pressure 122/69 12/15/2014 11:45 AM CDT Pulse 69 12/15/2014 11:45 AM CDT Temperature 36.6 C (97.9 F) 12/15/2014 10:29 AM CDT Respiratory Rate 17 12/15/2014 11:45 AM CDT Oxygen Saturation 95% 12/15/2014 11:45 AM CDT Inhaled Oxygen Concentration - - Weight 81.6 kg (180 lb) 12/15/2014 10:28 AM CDT Height 182.9 cm (6') 12/15/2014 10:28 AM CDT Body Mass Index 24.41 12/15/2014 10:28 AM CDT Plan of Treatment Not on file Care Teams Team Assembly Line Machine Operator Relationship Specialty Start Date End Date Provider, None [place] PCP - General 12/15/14
[2024-07-10] MEDS: ACETAMINOPHEN 500 MG TABLET 1000 MG PO (06:25)
[2024-07-10] MEDS: KETOROLAC 15 MG/ML VIAL (*BKC) IV PUSH (06:30)
--- NOTE | 2024-07-10 07:09 | P.PNAN_ITS ---
Anes - Initial Pre Proc Eval Procedure: Operation Date: 07/10/24 07:30 Proposed Procedures p Arthroscopic Repair of Left Shoulder Rotator Cuff Tear - Cuba Macario MD Date/Time: 07/10/24 07:09 Surgeon: Cuba Macario MD Pre Op Diagnosis: Left Shoulder Pain Patient Data Age: 64 Gender: M Height: 1.83 m Weight: 80.2 kg Last Vital Signs Temp 36.3 C L 07/10/24 06:10 Pulse 76 07/10/24 06:10 Resp 18 07/10/24 06:10 BP 145/80 H 07/10/24 06:10 Pulse Ox 99 07/10/24 06:10 O2 Del Method Room Air 07/10/24 06:10 Allergies Allergy/AdvReac Type Severity Reaction Status Date / Time No Known Allergies Allergy Verified 07/10/24 06:48 Home Medications ?Medication ?Instructions ?Recorded ?Confirmed ?Type ibuprofen 200 mg capsule 400 mg PO Q6H PRN PAIN 10/21/20 06/27/24 History hydrocodone 5 mg-acetaminophen 325 1 tablet PO Q6H PRN pain #16 tabs 11/06/20 06/27/24 Rx mg tablet albuterol sulfate 90 mcg/actuation 2 puff inhalation PRN COUGH 06/27/24 06/27/24 History aerosol inhaler lisinopril 20 mg tablet 20 mg PO DAILY 06/27/24 07/10/24 History rosuvastatin 10 mg tablet 10 mg PO HS 06/27/24 07/10/24 History sildenafil 100 mg tablet 100 mg PO PRN ERECTILE DYSFUNCTION 06/27/24 06/27/24 History aspirin 81 mg tablet,delayed 81 mg PO DAILY 07/10/24 07/10/24 History release Patient hx anesthesia problems: none Family hx anesthesia problems: none Results Review: All pre-operative results and documents have been reviewed as part of the pre- operative evaluation. [facility] Past Medical History Medical History COPD (chronic obstructive pulmonary disease) Surgical History Surgical History History of appendectomy Family History Family History Father , age 70 Acute myocardial infarction Mother , age 70 Acute myocardial infarction Other Heart disease Social History Social History Smoking packs per day: 1 Smoking cigarettes per day: 20.0 Years smoked: 48 Smoking pack-years: 48.00 Tobacco type: cigarettes Second hand tobacco smoke exposure: Yes Additional smoking assessment comments: QUIT 05/11/24.STARTED AGAIN 06/20/24 1-2 CIGARETTS DAY Alcohol intake: current Drinks per week: 24 Alcohol use details: BEER Substance use: never Substance use type: marijuana Other substance usage details: TAKES AT HS FOR PAIN Last use: 06/27/24 Living arrangements: with family 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 Informed Consent: The patient's anesthetic plan and its attendant risks and benefits were discussed with the patient/family/POA. Questions were solicited and answers provided to the satisfaction of the patient/family/POA.
--- NOTE | 2024-07-10 07:19 | WPDHPUPDATE1 ---
History and Physical Update Update Date/Time: 07/10/24 07:19 History and Physical has been reviewed, including an updated exam of the patient. There are NO changes in the patient's condition. Risks, benefits, and alternatives have been discussed and questions answered. Patient agrees to proceed with procedure.
--- NOTE | 2024-07-10 07:25 | PM.IMHP ---
H&P: HPI History of Present Illness Date/Time: 07/10/24 07:25 Chief Complaint: 64 yr old male with Left Shoulder Pain due to full thickness rotator cuff tear. Narrative: Anterior, sharp, 6/10, 8 months, daily, after work related injury, rest Review of Systems Review of Systems: All systems reviewed & are unremarkable except as noted in HPI and below Constitutional: Constitutional: Reports as per HPI Musculoskeletal: Musculoskeletal: Reports no additional musculoskeletal complaints Neurologic: Reports system reviewed and no additional complaints, except as documented Psychiatric: Psychiatric: Reports no additional psychiatric complaints Endocrine: Endocrine: Reports no additional endocrine complaints Hematologic/Lymphatic: Hematologic/Lymphatic: Reports no additional hematologic/lymphatic complaints Allergic/Immunologic: Allergic/Immunologic: Reports no additional allergic/immunologic complaints [facility] Past Medical History Medical History COPD (chronic obstructive pulmonary disease) Surgical History Surgical History History of appendectomy Family History Family History Father , age 70 Acute myocardial infarction Mother , age 70 Acute myocardial infarction Other Heart disease Social History Social History Smoking packs per day: 1 Smoking cigarettes per day: 20.0 Years smoked: 48 Smoking pack-years: 48.00 Tobacco type: cigarettes Second hand tobacco smoke exposure: Yes Additional smoking assessment comments: QUIT 05/11/24.STARTED AGAIN 06/20/24 1-2 CIGARETTS DAY Alcohol intake: current Drinks per week: 24 Alcohol use details: BEER Substance use: never Substance use type: marijuana Other substance usage details: TAKES AT FOR PAIN Last use: 06/27/24 Living arrangements: with family Occupation/Education: 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 Spiritual care concerns: No Meds Home Medications and Allergies Home Medications ?Medication ?Instructions ?Recorded ?Confirmed ?Type ibuprofen 200 mg capsule 400 mg PO Q6H PRN PAIN 10/21/20 06/27/24 History hydrocodone 5 mg-acetaminophen 325 1 tablet PO Q6H PRN pain #16 tabs 11/06/20 06/27/24 Rx mg tablet albuterol sulfate 90 mcg/actuation 2 puff inhalation PRN COUGH 06/27/24 06/27/24 History aerosol inhaler lisinopril 20 mg tablet 20 mg PO DAILY 06/27/24 07/10/24 History rosuvastatin 10 mg tablet 10 mg PO HS 06/27/24 07/10/24 History sildenafil 100 mg tablet 100 mg PO PRN ERECTILE DYSFUNCTION 06/27/24 06/27/24 History aspirin 81 mg tablet,delayed 81 mg PO DAILY 07/10/24 07/10/24 History release Allergies Allergy/AdvReac Type Severity Reaction Status Date / Time No Known Allergies Allergy Verified 07/10/24 06:48 Vital Signs Vital Signs - 24 hr 07/10/24 06:10 Temperature 36.3 C L Pulse Rate 76 Respiratory Rate 18 Blood Pressure 145/80 H Pulse Oximetry 99 Oxygen Delivery Room Air Exam Narrative: Left Shoulder with painful passive and active ROM, tenderness anterior, 4/5 rc strength, intact sensation, palpable radial pulse Const: General: cooperative HENMT: Head: normal to inspection Eyes: General: appearance normal, both eyes and all related structures Neck: Neck: normal visual inspection Chest: Chest palpation & inspection: normal inspection of the chest Resp: Effort & Inspection: normal respiratory effort Cardio: Rate: regular rate Rhythm: regular rhythm Skin: General skin exam: normal color Neuro: General: oriented to person, oriented to place and oriented to time Psych: Appearance: grossly normal Assessment and Plan Assessment and plan (1) Shoulder pain, left: Code(s): M25.512 - Pain in left shoulder Status: Acute Plan 64 yr old male with Left Shoulder Rotator Cuff Tear, plan arthroscopic RC Repair. Risks benefits alternatives and complications discussed with patient and . They agree to proceed.
[2024-07-10] MEDS: ceFAZolin 2 GM/D5W 50 ML 2 GM/50 ML BAG IVPB (07:34)
[2024-07-10] MEDS: LIDO 1%/EPINEPHRINE 1:100,000 20 ML VIAL 30 ML INFILTRATE (08:24)
[2024-07-10] MEDS: LACTATED RINGERS 1,000 ML 100 ML IV CONT (09:56)
--- NOTE | 2024-07-10 10:06 | W.PM.PROC2 ---
Procedure Note - Detailed Date of Procedure 07/10/24 Pre-op Diagnosis Left Shoulder Full Thickness Rotator Cuff Tear Left Shoulder Sub-Acromial Impingement Left Shoulder Sub-Acromial Bursitis Post-op Diagnosis Same Procedure Performed 1. Left Shoulder Rotator Cuff Repair 2. Left Shoulder Subacromial Decompression 3. Left Shoulder Extensive Debridement of Subacromial Space Surgeon Cuba Macario MD Anesthesia General Indications The patient is a 64 yr old male with work related injury to the Left Shoulder. 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 He had been doing this for more than 20 yrs. He failed conservative management. MRI confirmed full thickness rotator cuff tear. Findings 1. Left Shoulder Rotator Cuff tear, 3x2cm 2. Left Shoulder Subacromial spur with impingement 3. Left Shoulder Subacromial bursitis with extensive inflammation Description of Procedure The patient was transfered to operating room, placed in the supine position and then underwent general anesthesia. Then placed in the beach chair position with all bony prominences padded. Left upper extremity was then prepped and draped in a sterile fashion. Standard 3 portals were created. I first entered into the glenohumeral joint space. Intact labrum, intact biceps tendon. Min deg joint disease. I then entered into the subacromial space. Extensive debridement with complete bursectomy was performed with an arthroscopic shaver and bovie cautery. I then Identified a subacromial spurr of off the inferior surface of the acromium. I then performed a subacromial decompression by removing 5mm of the undersurface of the acromium with a ellie. I then identified the full thickness rotator cuff tear involving the supra and infra spinatus. I then debrided the foot print of the RC tendon with a ellie. I then placed 2 suture anchors on the medial row. - passed 1 suture from each of the anchors through the RC Tendon Anteriorly with a suture pusher (Viper). - passed 1 suture from each of the anchors through the RC Tendon Posteriorly with a suture pusher (Viper). I then created 2 additional suture anchor points laterally and then anchored the above sutures through the lateral row x2. 1 additional suture was placed anteriorly to secure the most antrior aspect of the rc tear. At the end of the procedure, the portal sites were closed with monocryl suture and steri strips. Lidocaine injected into skin. Bandaged, transfered to recovery room in stable condition. Implants: Double Row Suture Kit from [employer] Single soft tissue anchor anteriorly from [employer]. Estimated Blood Loss 10 Drains No Packing No Pathology None sent Complications None Condition Stable Disposition PACU
[2024-07-10] MEDS: fentaNYL CITRATE INJ (*CRX) 100 MCG/2 ML VIAL 25 MCG IV PUSH ×6 (10:15→10:40)
[2024-07-10] MEDS: HYDROcodone/acetaminophen (*CRX) 5-325 MG TABLET 1 TAB PO (11:47)
== END 2024-07-10 12:54 | disposition home or self-care (01) ==
PROVIDERS: PCP Family Medicine; Visit Provider Orthopaedic Surgery
PROC: (CPT 29805; principal; 2024-07-10 07:30)
DX: M75.122 Complete rotator cuff tear or rupture of left shoulder, not specified as traumatic (principal); M75.42 Impingement syndrome of left shoulder; M75.52 Bursitis of left shoulder; M25.812 Other specified joint disorders, left shoulder; J44.9 Chronic obstructive pulmonary disease, unspecified; F17.210 Nicotine dependence, cigarettes, uncomplicated; F12.90 Cannabis use, unspecified, uncomplicated; Z79.1 Long term (current) use of non-steroidal anti-inflammatories (NSAID); Z79.891 Long term (current) use of opiate analgesic; Z79.51 Long term (current) use of inhaled steroids; Z79.82 Long term (current) use of aspirin; Z98.890 Other specified postprocedural states; Z82.49 Family history of ischemic heart disease and other diseases of the circulatory system
CPT/HCPCS: 29827; 29826; A9270; C1713; J0690; J1100; J1885; J2004; J2250; J2270; J2371; J2405; J2704; J3010; J3301; J7120

== ENCOUNTER 2024-10-29 12:59 | Inpatient (IN) | payer MEDICARE, SELFPAY ==
[2024-10-29] VITALS (22 sets, daily range): BP systolic 105–147; BP diastolic 70–90; PULSE 65–92; RESP 12–26; TEMP 36.8; O2SAT 94–99; BMI 22.6
--- NOTE | ~2024-10-29 | MR_ITS ---
EXAMINATION: MR brain/brain stem wo/w con DATE: 10/30/2024 08:51 INDICATION: Transient left eye vision loss TECHNIQUE: Magnetic resonance imaging (MRI) of the brain and brainstem was performed without and with 15 mL ProHance intravenous contrast. Sequences included sagittal and axial T1-weighted SE, axial dif fusion-weighted FS SE, axial 3D SWAN, axial T2-weighted FLAIR, axial T2-weighted FSE and coronal thin T2-weighted FS FSE. Postcontrast axial, coronal T1-weighted FSE and coronal thin coronal T1-weighted FSE were obtained. Apparent diffusion coefficient (ADC) maps were created. COMPARISON: CT and CT angiogram dated 10/29/2024 FINDINGS: A few small old lacunar infarcts at the right cerebellar hemisphere and one in the right lentiform nu cleus. There are no areas of restricted diffusion to suggest acute infarction. No intracranial hemorr nanci or abnormal intracranial mass lesion. There are scattered areas of nonspecific increased T2-weig hted signal intensity in the cerebral and pontine white matter, predominantly involving the deep and periventricular white matter. There are no intraparenchymal signal abnormalities seen on the other pu lse sequences. The ventricles are symmetric and normal in size. There are no abnormal extra-axial flu id collections. Flow voids are seen in the cerebral arteries on the T2-weighted sequences consistent with their expected patency. Visualized orbits and soft tissues are unremarkable. Mucosal thickening in the paranasal sinuses. There are no areas of abnormal enhancement on the post contrast images. IMPRESSION: 1. Small old lacunar infarcts at the right lentiform nucleus and right cerebral hemisphere. No acute intracranial process or abnormally enhancing brain lesions. 2. Several scattered small foci of calcific white matter T2 hyperintensity which is within normal for age and likely sequela of chronic small vessel ischemic disease. Reviewed, dictated and finalized at location B. IMPRESSION: 1. Small old lacunar infarcts at the right lentiform nucleus and right cerebral hemisphere. No acute intracranial process or abnormally enhancing brain lesion s. 2. Several scattered small foci of calcific white matter T2 hyperintensity whic h is within normal for age and likely sequela of chronic small vessel ischemic disease.
--- NOTE | ~2024-10-29 | MR_ITS ---
EXAMINATION: MR orbits face neck wo con DATE: 10/31/2024 12:58 INDICATION: Blurry vision TECHNIQUE: Magnetic resonance imaging (MRI) of the and orbits was performed without intravenous contr ast. Small [id number] sequences of the orbits included coronal and axial T2-weighted FS FSE and T1 -weighted FSE and sagittal axial T1-weighted. COMPARISON: Brain MR dated 10/30/2024 FINDINGS: Orbits are normal including normal appearing globes, ocular nerves, ocular muscles and intraorbital f at. There is mild mucosal thickening the bilateral frontal sinuses and moderate mucosal thickening in the bilateral ethmoid sinuses. There is a focus of susceptibility artifact related to a small foreig n body in the subcutaneous tissues along the lateral margin of the right zygoma. Small old lacunar in farct at the right lentiform nucleus and right cerebellar hemisphere. Visualized brain is otherwise u nremarkable. IMPRESSION: 1. Normal bilateral orbits. 2. Sinus disease. 3. Small old lacunar infarcts at the right lentiform nucleus and right cerebellar hemisphere. Reviewed, dictated and finalized at location B. IMPRESSION: 1. Normal bilateral orbits. 2. Sinus disease. 3. Small old lacunar infarcts at the right lentiform nucleus and right cerebell ar hemisphere.
--- NOTE | ~2024-10-29 | XR_ITS ---
XR chest 1V portable Ordering provider: José Miguel Gates MD History: 64 years Male with . CVA . Comparison: June 27, 2024 FINDINGS: MEDIASTINUM: The cardiac silhouette is not enlarged. LUNGS: No infiltrates, effusions or pneumothorax. OTHER: No free air under the diaphragm. IMPRESSION: No acute cardiopulmonary pathology. Reviewed, dictated and finalized at location A.
--- NOTE | ~2024-10-29 | CT_ITS ---
CTA brain carotid Ordering provider: José Miguel Gates MD History: . left occular impairment suspect non acute CVA . Comparison: None. Technique: CT angiogram head and neck was performed following timed intravenous injection of contrast . Thin slice axial images and reformatted coronal images were obtained. Three dimensional reformatted images of the brain were also obtained using a [employer] workstation. Radiation reduction technique uti lized. The dose-length product was 1851.33 mGy-cm. 100 mL Omnipaque 350 was given IV. FINDINGS: HEAD: --ANTERIOR AND MIDDLE CEREBRAL ARTERIES AND BRANCHES: Normal caliber and contour. --INTERNAL CAROTID ARTERIES: Moderate atheromatous disease bilaterally resulting in mild stenosis but no occlusion. --BASILAR ARTERY AND BRANCHES: Normal caliber and contour. No atheromatous disease. --POSTERIOR CEREBRAL ARTERIES: Normal caliber and contour --POSTERIOR COMMUNICATING ARTERIES: Not visualized which is probably related to congenital absence or small size. --ANEURYSM: None visualized. --BRAIN: Mild brain atrophy with deep white matter ischemic changes. --BONES AND SUPERFICIAL SOFT TISSUES: No fractures. Small bony fragment or foreign bodies seen anteri or to the right zygomatic arch. --PARANASAL SINUSES AND MASTOIDS: Bilateral ethmoid sinus disease. Otherwise, Normal. NECK: --RIGHT CERVICAL CAROTID SYSTEM: Mild atheromatous disease of the carotid bulb and proximal internal carotid artery without significant stenosis. Percent stenosis per NASCET criteria is 10%. No carotid dissection. Otherwise, no significant atheromatous disease or stenosis of the cervical carotid syste m. --LEFT CERVICAL CAROTID SYSTEM: Mild atheromatous disease of the carotid bulb and proximal internal c arotid artery without significant stenosis. Percent stenosis per NASCET criteria is 20% No carotid d issection. Otherwise, no significant atheromatous disease or stenosis of the cervical carotid system. --VERTEBRAL ARTERIES: Normal caliber and contour. --VISUALIZED AORTIC ARCH AND BRANCHING VESSELS: Mild atheromatous disease but no significant stenosis . --SOFT TISSUES: Normal. --CERVICAL SPINE: Age appropriate degenerative changes. IMPRESSION: 1. Moderate narrowing of the internal carotid arteries in the area of the cavernous sinus. Otherwise , Normal CTA head. 2. CTA neck. Percent stenosis per NASCET criteria is on the right side 10% and on the left 20%. Reviewed, dictated and finalized at location A. IMPRESSION: 1. Moderate narrowing of the internal carotid arteries in the area of the cave rnous sinus. Otherwise, Normal CTA head. 2. CTA neck. Percent stenosis per NASCET criteria is on the right side 10% and on the left 20%.
--- OUTSIDE RECORDS SUMMARY | 2024-10-29 13:06 | XMS_ITS ---
Author Organization Unknown Address [address] [place] [phone] Phone Care Team Providers Care Dry Plasterer Helper Name Role Phone RICARDO MOORE Attending Unavailable [...] scalp, neck, axillae, external farshad 06/30/2022 completed 50485 CPT Plan of Treatment No Data Found Encounters Encounter Diagnosis Start Date Code Code Sys tem Laceration with foreign body of left hand, initial encounter 06/30/2022 SNOMED-CT Personal Care Team Section
--- OUTSIDE RECORDS SUMMARY | 2024-10-29 13:06 | XMS_ITS | Clinical Summary ---
Author Organization [facility] Address [address] [place] [address] Phone Care Team Providers Care Spring Coiler Name Role Phone Provider, None Primary Care [...] of Treatment Not on file Care Teams Spring Coiler Relationship Specialty Start Date End Date Provider, None [place] PCP - General 12/15/14
--- OUTSIDE RECORDS SUMMARY | 2024-10-29 13:07 | XMS_ITS ---
Author Organization [facility] Address [address] [place] [address] Care Team Providers Care Ship Ceiler Name Role Phone Dr. Cesar Matta Primary Care Provider [phone] Veronica Adler Unavailable [phone] Allergies Allergen (clinical drug ingredient) Drug/Non Drug Allergy documented on EMR Reaction Allergy Type Onset Date Status atorvastatin Atorvastatin Unknown Drug Allergy 06/19/2023 Active tramadol traMADol Unknown Drug Allergy 09/21/2020 Active REASON FOR VISIT visual auras Medications Medication SIG (Take, Route, Frequency, Duration) Notes Start Date End Date Status Rosuvastatin Calcium 20 MG Tablet 1 tablet Orally Once a day; Duration: 30 days dose increase 09/13/2024 Active Tadalafil 5 MG Tablet 1-2 tablets 30 minutes before sexual activity as needed Orally; Duration: 30 days 09/05/2024 Active methylPREDNISolone 4 MG Tablet Therapy Pack as directed on package Orally daily; Duration: 6 days 06/05/2024 Not-Taking Percocet 5-325 MG Tablet 1 Oral Q6H; Duration: 0 02/20/2024 Not-Taking Meloxicam 15 MG Tablet 1 Oral twice a day; Duration: 0 days 11/08/2023 Active Pregabalin 100 MG Capsule 1 capsule Orally twice a day 09/05/2024 Active RABEprazole Sodium 20 MG Tablet Delayed Release 1 tablet twice a day Active Albuterol Sulfate HFA 108 (90 Base) MCG/ACT Aerosol Solution 2 puffs as needed Inhalation every 4 hrs; Duration: 30 days 06/05/2024 Not-Taking Aspirin Adult Low Strength 81 MG Tablet Delayed Release 1 Oral every day; Duration: 90 11/08/2023 5 Active Lisinopril 20 MG Tablet 1 tablet Orally Once a day; Duration: 90 days Active Social History Social History Additional Details Category Social Info Options Details Migrated Social History Migrated Social History Marital status: , Alcohol Misuse:Yes ,notes : History of alcoholism , Alcohol history:Patient stopped 06/2013 Vital Signs Temperature 98.6 degrees Fahrenheit 10/30/19 25 Blood pressure systolic 136 mm Hg 10/30/19 25 Blood pressure diastolic 76 mm Hg 025 Heart Rate 75 /min 10/29/2024 Height 72.00 in 10/29/2024 Weight 176.2 lbs 10/29/2024 BMI 23.89 kg/m2 10/29/2024 Oximetry 98 % 10/29/2024 Height-cm 182.88 cm 10/29/2024 Weight-kg 79.92 kg 10/29/2024 Encounters Encounter Location Date Provider Diagnosis [address] [address] 10/29/2024 Veronica Adler Visual disturbance H53.9 and Tobacco abuse Z72.0 Assessments Encounter Date Diagnosis (ICD Code) Assessment Notes Treatment Notes Treatment Clinical Notes Section Notes 10/29/2024 Visual disturbance (ICD-10 - H53.9) - Visual symptoms possibly related to neurological vs. cardiac vs. vascular etiology; concern for TIA or stroke. High risk due to personal and family history and current smoker. - Recommendation for urgent evaluation in the emergency department at [facility] (per PT request) with neurology and cardiology access. - Plan to call report to ER and advise preparation for possible overnight stay. Need for MRI brain, Echo/EKG, Carotid US, labs etc. - Will f/u with phone call tomorrow 10/30 for update. - Patient escorted to [facility] by . 10/29/2024 Tobacco abuse (ICD-10 - Z72.0) 10/29/2024 Other LEONIDAS Monteneg[place] led report to Dr. Blake at [facility]. Pt. arriving with in [place] in approx 1 hr. Plan Of Treatment Treatment Notes Assessment Notes Visual disturbance - Visual symptoms possibly related to neurological vs. cardiac vs. vascular etiology; concern for TIA or stroke. High risk due to personal and family history and current smoker. - Recommendation for urgent evaluation in the emergency department at [facility] (per PT request) with neurology and cardiology access. - Plan to call report to ER and advise preparation for possible overnight stay. Need for MRI brain, Echo/EKG, Carotid US, labs etc. - Will f/u with phone call tomorrow 10/30 for update. - Patient escorted to [facility] by . Other LEONIDAS Monten[place] called r [place] to Dr. Blake at [facility]. Pt. arriving with in [place] in approx 1 hr. History and Physical Notes * HPI (History of Present Illness) Category Sub-Category Detail Notes Category Not es HPI Visual Disturba nces: Daniele has been experiencing vision issues for the past 2 months, primarily involving blurry vision on the left/outer side of his left eye. He describes his vision during these episodes as blurry like seeing heat come off of the highway and scattered like a blurry television screen. These episodes occur daily, sometimes multiple times a day lately, and last about 5-10 minutes. There is no pain associated with these episodes including eye pain or headaches. He does not experience any blackouts,syncopal episodes or notices tingling/numbness sensation before, during or after the episodes. Denies any weakness, slurred speech, chest pain, faintness, lightheadedness or dizziness. Has dyspnea at times due to COPD and is a current active cigarette smoker. He is not compliant with taking all of his medication regularly as prescribed/indicated. Supposed to take baby Aspirin and admits to not doing so. He has a family history of heart issues, with both parents having of heart attacks and his brothers also experiencing heart problems. He went to see his eye doctor yesterday who did an eye exam, that was normal, and she advised him to see if PCP for further workup. Examination Category Sub-Category Detail Notes Category Not es General Examination General appearance: alert, p leasant, well-nourished and in no acute distress Head: normocephalic, atrau matic Eyes: both eyes, extraocul ar movement intact (EOMI), pupils equal, round, reactive to light and accommodation, conjunctiva clear Ears: both ears, tympanic membrane intact and clear Nose: nares patent Throat: pharynx normal Neck / thyroid: carotid pulses are n ormal and without bruits, no jugular venous distention Heart: regular rate and rhy thm without murmurs, gallops, clicks or rubs Lungs: clear to auscultatio n bilaterally, with good air movement and no rales, rhonchi or wheezes Neurologic: alert and oriented, cranial nerves 2-12 grossly intact, gait normal, normal upper and lower extremity motor strength and function, neck is supple without rigidity or tremor, normal exam with no motor or sensory deficits Skin: warm and dry; good s kin turgor Extremities: normal extremity wit h no clubbing, cyanosis or edema Peripheral pulses: 2+ radial Psych: cooperative with exa m, maintains good eye contact, normal affect / mood Oral cavity: normal, mucosa moist Progress Notes * Daniele YEEDOB:1960 (64 yo M)Acc No.[id number]:10/29/2024 Patient: Daniele Faulkner Provider: Brandy Adler NP :1960 A ge:64 Y S ex:Male Date:10/29/2024 Phone: Address:[address] [place], [place] [id number] Pcp:Dr. Cesar Matta Subjective: * Chief Complaints: * V isual auras * HPI: H PI: Visual Disturbances: Brian orr has been experiencing vision issues for the past 2 months, primarily involving blurry vision on the left/outer side of his left eye. He describes his vision during these episodes as blurry like seeing heat come off of the highway and scattered like a blurry television screen. These episodes occur daily, sometimes multiple times a day lately, and last about 5-10 minutes. There is no pain associated with these episodes including eye pain or headaches. He does not experience any blackouts,syncopal episodes or notices tingling/numbness sensation before, during or after the episodes. Denies any weakness, slurred speech, chest pain, faintness, lightheadedness or dizziness. Has dyspnea at times due to COPD and is a current active cigarette smoker. He is not compliant with taking all of his medication regularly as prescribed/indicated. Supposed to take baby Aspirin and admits to not doing so. He has a family history of heart issues, with both parents having of heart attacks and his brothers also experiencing heart problems. He went to see his eye doctor yesterday who did an eye exam, that was normal, and she advised him to see if PCP for further workup. * ROS: S ee HPI for details. * Surgical History: back surgery ,notes : L4-5 and L5-S1 decompressive Lumbar Laminectomy Appendectomy ,notes : Age 4 _ Steroid injection ,notes : L4, L5 10/01/2021 injection-trigger point 09/06/21 EGD ,notes : small <5mm esophageal varices, portal hypertensive gastropathy. Repeat in 2 years. Devine sarita- Dr. Telles. 11/02/[address] Simons 07/10/24 Surgical History verified. * Family History: F ather: Myocardial infarction,Tumor. M other: Diabetes mellitus Type 2,Myocardial infarction. S ister: Diabetes mellitus Type 2. * Social History: M igrated Social History: M igrated Social History: Marital status:,Alcohol Misuse:Yes ,notes : History of alcoholism,Alcohol history:Patient stopped 06/2013. Social History Verified. * Medications: T akingRABEprazole Sodium 20 MG Tablet Delayed Release 1 tablet twice a day Pregabalin 100 MG Capsule 1 capsule Orally twice a day Adult Low Strength 81 MG Tablet Delayed Release 1 Oral every day , stop date 11/01/2024Lisinopril 20 MG Tablet 1 tablet Orally Once a day Meloxicam 15 MG Tablet 1 Oral twice a day Tadalafil 5 MG Tablet 1-2 tablets 30 minutes before sexual activity as needed Orally , stop date 11/04/2024Rosuvastatin Calcium 20 MG Tablet 1 tablet Orally Once a day , Notes to Pharmacist: dose increaseTaking RABEprazole Sodium 20 MG Tablet Delayed Release 1 tablet twice a day Taking Pregabalin 100 MG Capsule 1 capsule Orally twice a day Aspirin Adult Low Strength 81 MG Tablet Delayed Release 1 Oral every day , stop date 11/01/2024Taking Lisinopril 20 MG Tablet 1 tablet Orally Once a day Taking Meloxicam 15 MG Tablet 1 Oral twice a day Taking Tadalafil 5 MG Tablet 1- 2 tablets 30 minutes before sexual activity as needed Orally , stop date 11/04/2024Taking Rosuvastatin Calcium 20 MG Tablet 1 tablet Orally Once a day , Notes to Pharmacist: dose increaseNot-TakingAlbuterol Sulfate HFA 108 (90 Base) MCG/ACT Aerosol Solution 2 puffs as needed Inhalation every 4 hrs Percocet 5-325 MG Tablet 1 Oral Q6H methylPREDNISolone 4 MG Tablet Therapy Pack as directed on package Orally daily Medication List reviewed and reconciled with the patientNot-Taking Albuterol Sulfate HFA 108 (90 Base) MCG/ACT Aerosol Solution 2 puffs as needed Inhalation every 4 hrs Not-Taking Percocet 5-325 MG Tablet 1 Oral Q6H Not-Taking methylPREDNISolone 4 MG Tablet Therapy Pack as directed on package Orally daily Medication List reviewed and reconciled with the patient * Allergies: A torvastatin: Allergy - Onset Date 06/19/2023traMADol: Allergy - Onset Date 09/21/2020yesAllergies Verified. Objective: * Vitals: B P:136/76mm Hg, HR:75/min, Temp:98.6F, Oxygen sat %:98%, Ht: 72.00 in, Wt:176.2lbs, Wt-k.92 kg, Ht-cm: 182.88 cm, BMI:23.89Index, Body Surface Area: 2.01. * Examination: G eneral Examination: General appearance: a lert, pleasant, well-nourished and in no acute distress. Head: n ormocephalic, atraumatic. Eyes: b oth eyes, extraocular movement intact (EOMI), pupils equal, round, reactive to light and accommodation, conjunctiva clear. Ears: b oth ears, tympanic membrane intact and clear. Nose: n terence patent. Oral cavity: n ormal, mucosa moist. Throat: p harynx normal. Neck / thyroid: c arotid pulses are normal and without bruits, no jugular venous distention. Skin: w arm and dry; good skin turgor. Heart: r egular rate and rhythm without murmurs, gallops, clicks or rubs. Lungs: c lear to auscultation bilaterally, with good air movement and no rales, rhonchi or wheezes. Extremities: n ormal extremity with no clubbing, cyanosis or edema. Peripheral pulses: 2 + radial. Neurologic: a lert and oriented, cranial nerves 2-12 grossly intact, gait normal, normal upper and lower extremity motor strength and function, neck is supple without rigidity or tremor, normal exam with no motor or sensory deficits. Psych: c ooperative with exam, maintains good eye contact, normal affect / mood. Assessment: * Assessment: 1. V isual disturbance - H53.9 (Primary) 2 . T obacco abuse - Z72.0 ? Plan: * Treatment: 2. O thers Notes:Moni RN called report to Dr. Blake at [facility]. Pt. arriving with in [place] in approx 1 hr. * Procedure Codes: G 2211 G 2211 Complexity Add-On Billing Information: * Visit Code: 62090 OFFICE VISIT LOW. * Procedure Codes: G2211 G 2211 Complexity Add-On. * Sign off status: Completed true * Provider: Brandy Adler NP Date: 10/29/2024 Generated for Kina del valle/Dashawn/Al on: 10/29/2024 01:06 PM CDT
--- OUTSIDE RECORDS SUMMARY | 2024-10-29 13:07 | XMS_ITS | Patient Health Record ---
Author Organization [facility] Address [address] [place] [address] Care Team Providers Care Manager Customer Name Role Phone Dr. Cesar Matta Primary Care Provider [phone] Dr. Veronica Ibarra Unavailable [phone] Isma Katz Unavailable [phone] Veronica Adler Unavailable [phone] Migration, Provider Unavailable Unavailable Allergies Allergen (clinical drug ingredient) Drug/Non Drug Allergy documented on EMR Reaction Allergy Type Onset Date Status atorvastatin Atorvastatin Unknown Drug Allergy 06/19/2023 Active tramadol traMADol Unknown Drug Allergy 09/21/2020 Active Results Component Value Reference Range Flag Notes CBC With Differential/Platel et Reviewed date:11/04/2023 12:00:00 AM Interpretation: Performing Lab: Notes/Report: Baso (Absolute) 0.1 x10E3/uL Basos 1 % Eos 9 % Eos (Absolute) 1.0 x10E3/uL Hematocrit 53.0 % Hemoglobin 18.2 g/dL Immature Grans (Abs) 0.0 x10E3/uL Immature Granulocytes 0 % Lymphs 24 % Lymphs (Absolute) 2.5 x10E3/uL MCH 32.5 pg MCHC 34.3 g/dL MCV 95 fL Monocytes 7 % Monocytes(Absolute) 0.7 x10E3/uL Neutrophils 59 % Neutrophils (Absolute) 6.1 x10E3/uL Platelets 267 x10E3/uL RBC 5.60 x10E6/uL RDW 12.7 % WBC 10.4 x10E3/uL Comp. Metabolic Panel (14) Reviewed date:11/04/2023 12:00:00 AM Interpretation: Performing Lab: Notes/Report: Albumin 4.9 g/dL Alkaline Phosphatase 71 IU/L ALT (SGPT) 21 IU/L AST (SGOT) 42 IU/L Bilirubin, Total 0.4 mg/dL BUN 13 mg/dL BUN/Creatinine Ratio 13 Calcium 10.3 mg/dL Carbon Dioxide, Total 25 mmol/L Chloride 100 mmol/L Creatinine 0.97 mg/dL eGFR 87 mL/min/1.73 Globulin, Total 2.9 g/dL Glucose 93 mg/dL Potassium TNP mmol/L Protein, Total 7.8 g/dL Sodium 138 mmol/L Lipid Panel Reviewed date:11/04/2023 12:00:00 AM Interpretation: Performing Lab: Notes/Report: Cholesterol, Total 222 mg/dL HDL Cholesterol 63 mg/dL LDL Chol Calc ([facility]) 140 mg/dL Triglycerides 110 mg/dL VLDL Cholesterol Diaz 19 mg/dL Influenza DNA A/B Alere Reviewed date:06/10/2024 12:49:55 PM Interpretation:Negative Performing Lab: Notes/Report: Negative Covid DNA Alere Reviewed date:06/10/2024 12:49:55 PM Interpretation:Negative Performing Lab: Notes/Report: Negative TSH Reflex Free T4 Reviewed date:09/13/2024 12:32:42 PM Interpretation: Performing Lab: Notes/Report: Test Performed by: [place] [address] Store Manager: Cody Cornejo DO TSH. 3.41 0.45-5.33 mcIU/mL CBC w Auto Diff Reviewed date:09/13/2024 12:32:42 PM Interpretation: Performing Lab: Notes/Report: Test Performed by: [place] [address] Store Manager: Cody Cornejo DO WBC 7.8 4.0-11.7 K/mcL RBC 5.37 4.28-5.56 x10*6/mcL Hgb 17.3 13.0-17.0 g/dL H Hct 50.2 38.1-48.9 % H MCV 93.5 83.4-98.1 fL MCH 32.2 27.0-34.2 pg MCHC 34.4 31.8-35.3 g/dL RDW 13.3 12.0-16.4 % Platelets 249 149-393 K/mcL MPV 8.3 7.0-11.0 fL Neutro Auto 57.3 45.3-79.0 % Lymph Auto 25.8 11.8-45.9 % [place] Auto 7.2 4.4-12.0 % Eosinophil Auto 8.4 0.0-6.3 % H Basophil Auto 1.3 0.2-1.6 % Neutro Absolute 4.5 2.4-8.4 x10*3/mcL Lymph Absolute 2.0 0.8-3.7 x10*3/mcL [place] Absolute 0.6 0.3-1.1 x10*3/mcL Eos Absolute 0.7 0.0-0.5 x10*3/mcL H Baso Absolute 0.1 0.0-0.1 x10*3/mcL Comprehensive Metabolic Pane l Reviewed date:09/13/2024 12:32:42 PM Interpretation: Performing Lab: Notes/Report: Test Performed by: [place] [address] Store Manager: Cody Cornejo DO Glucose Lvl 95 74-109 mg/dL ADA risk stratification for diabetes <100 mg/dL = Normal 100-125 mg/dL = Increased risk for future diabetes >=126 mg/dL = Diabetes, if on more than one testing occasion BUN 16 7-25 mg/dL Creatinine Lvl 0.80 0.70-1.30 mg/dL eGFR CKD-EPI >90 >=90 mL/min/1.73 m2 The CKD-EPI equation is validated in individuals 18 years of age and older. It is less accurate in patients with extremes of muscle mass, restriction of dietary protein, ingestion of creatine, extra-renal metabolism of creatinine, or treatment with medications that affect renal tubular creatinine secretion. GFR Categories in Chronic Kidney Disease (CKD) GFR GFR (mL/min/1.73 Category: square meters): Interpretation: G1 90 or greater Normal or high* G2 60-89 Mild decrease* G3a 45-59 Mild to moderate decrease G3b 30-44 Moderate to severe decrease G4 15-29 Severe decrease G5 14 or less Kidney failure *In the absence of evidence of kidney damage, neither GFR category G1 nor G2 fulfill the criteria for CKD (Kidney Int Suppl 2013;3:1-150) Calcium Lvl 10.2 8.6-10.3 mg/dL Sodium Lvl 140 136-145 mmol/L Potassium Lvl 4.3 3.5-5.1 mmol/L Chloride Lvl 107 98-107 mmol/L CO2 28 21-31 mmol/L Anion Gap 5.3 <=16.0 mmol/L Alk Phos 74 34-104 unit/L Bilirubin Total 0.6 0.3-1.0 mg/dL Albumin Lvl 4.6 3.5-5.2 g/dL Protein Total 7.5 6.4-8.9 g/dL Albumin/Globulin Ratio 1.6 1.1-2.5 ALT 16 7-52 unit/L AST 24 13-39 unit/L Lipid Panel {Chol, Trig, HDL , LDL} Reviewed date:09/13/2024 12:32:42 PM Interpretation: Performing Lab: Notes/Report: Test Performed by: [place] [id number] Store Manager: Cody Cornejo DO Cholesterol Total 239 <=199 mg/dL H Triglycerides 188 0-149 mg/dL H Triglyceride Reference Ranges: <150 mg/dL Normal 150 - 199 mg/dL Borderline High 200 - 499 mg/dL High >=500 mg/dL Very High LDL 170 <=100 mg/dL H LDL Optimal: <100 Near or above optimal: 100-129 Borderline high: 130-159 High: 160-189 Very high: >=190 Coronary heart disease risk factors should be considered when determining LDL goals. Please refer to ATPIII guidelines for further information. If LDL is not calculated, please call the lab to add on the direct LDL methodology, if desired. HDL 31 23-92 mg/dL Non HDL Cholesterol 208 <=130 mg/dL H Chol/HDL 8 0-5 H Vitamin B12 Reviewed date:09/13/2024 12:32:42 PM Interpretation: Performing Lab: Notes/Report: Test Performed by: [address] [address] Store Manager: Cody Cornejo DO Vitamin B12 Lvl 343 180-914 pg/mL Vitamin B12 Interpretation: Normal Range: 180-914 pg/mL Indeterminate: 140-180 pg/mL Deficient: <140 pg/mL PSA Annual Screening Reviewed date:09/13/2024 12:32:42 PM Interpretation: Performing Lab: Notes/Report: Test Performed by: [address] [address] Store Manager: Cody Cornejo DO PSA Total 1.01 0.00-4.00 ng/mL Iron Panel Reviewed date:09/13/2024 12:32:42 PM Interpretation: Performing Lab: Notes/Report: Test Performed by: [facility] [place] [id number] Store Manager: Cody Cornejo DO Iron Lvl 123 50-212 mcg/dL Ferritin Lvl 330.8 23.9-336.2 ng/mL Transferrin 236 203-362 mg/dL TIBC 330 250-420 mcg/dL Iron Sat 37 20-55 % Reason For Referral No Information Medications Medication SIG (Take, Route, Frequency, Duration) Notes Start Date End Date Status Pregabalin 100 MG Capsule 1 capsule Orally twice a day 09/05/2024 Active RABEprazole Sodium 20 MG Tablet Delayed Release 1 tablet twice a day Active Albuterol Sulfate HFA 108 (90 Base) MCG/ACT Aerosol Solution 2 puffs as needed Inhalation every 4 hrs; Duration: 30 days 06/05/2024 Not-Taking Aspirin Adult Low Strength 81 MG Tablet Delayed Release 1 Oral every day; Duration: 90 11/08/2023 Active Rosuvastatin Calcium 20 MG Tablet 1 tablet Orally Once a day; Duration: 30 days dose increase 09/13/2024 Active Tadalafil 5 MG Tablet 1-2 tablets 30 minutes before sexual activity as needed Orally; Duration: 30 days 09/05/2024 Active methylPREDNISolone 4 MG Tablet Therapy Pack as directed on package Orally daily; Duration: 6 days 06/05/2024 Not-Taking Lisinopril 20 MG Tablet 1 tablet Orally Once a day; Duration: 90 days Active Percocet 5-325 MG Tablet 1 Oral Q6H; Duration: 0 02/20/2024 Not-Taking Meloxicam 15 MG Tablet 1 Oral twice a day; Duration: 0 days 11/08/2023 Active Immunizations Vaccine Route Administration Date Status Comme nts Influenza, quadrivalent (IIV4), split virus, 6-35 months dosage IM Intramuscular 02/12/2021 Administered ,sourcename : New immunization record ,immstatus : Complete Source VFC Code: : Influenza, quadrivalent (IIV4), split virus, 6-35 months dosage IM Intramuscular 05/05/2023 Administered ,sourcename : N ew immunization record ,immstatus : Complete Moderna Covid-19 Vaccine 1st dose Unknown 07/18/2020 Administered ,sourcename : Historical information -source unspecified Source VFC Code: : Moderna Covid-19 Vaccine 1st dose Unknown 08/15/2020 Administered ,sourcename : Historical information -source unspecified Source VFC Code: : Tdap IM Intramuscular 07/08/2022 Administered ,sourc ename : New immunization record ,immstatus : Complete Social History Social History Additional Details Category Social Info Options Details Migrated Social History Migrated Social History Marital status: , Alcohol Misuse:Yes ,notes : History of alcoholism , Alcohol history:Patient stopped 06/2013 Problems Problem Type SNOMED Code ICD Code Onset Dates Problem Status W/U Status Risk Notes Problem General examination of patient (690178044) Routine general medical examination at health care facility (V70.0) 017 Active confirmed Problem Viral hepatitis A without hepatic coma (244844847) Hepatitis A without hepatic coma (B15.9) Active confirmed Problem Chronic hepatitis C (451746052) Chronic viral hepatitis C (B18.2) 022 Active confirmed Problem Malignant neoplasm of skin (357103074) Unspecified malignant neoplasm of skin, unspecified (C44.90) 022 Active confirmed Problem 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 Problem Hyperlipidemia (73323367) Hyperlipidemia, unspecified (E78.5) 024 Active confirmed Problem Essential hypertension (84390651) Essential (primary) hypertension (I10) 022 Active confirmed Problem Emphysema (66024752) Emphysema, unspecified (J43.9) Active confirmed Problem Cirrhosis of liver (31482021) Unspecified cirrhosis of liver (K74.60) Active confirmed Problem Sebaceous cyst (545699166) Sebaceous cyst (L72.3) 023 Active confirmed Problem Localized, primary osteoarthritis of the ankle and/or foot (628373581) Primary osteoarthritis, unspecified ankle and foot (M19.079) Active confirmed Problem Cervicalgia (16459562) Cervicalgia (M54.2) Active confirmed Problem Backache (475287467) Dorsalgia, unspecified (M54.9) Active confirmed Problem Enthesopathy (28215856) Other enthesopathies, not elsewhere classified (M77.8) Active confirmed Problem Erectile dysfunction (disorder) (196627491) Male erectile dysfunction, unspecified (N52.9) Active confirmed Problem Other specified symptoms and signs involving the circulatory and respiratory systems (R09.89) Active confirmed Problem Paresthesia (finding) (20037672) Paresthesia of skin (R20.2) Active confirmed Problem Laboratory test result abnormal (113915377) Abnormal levels of other serum enzymes (R74.8) Active confirmed Problem Adult health examination (146902892) Encounter for general adult medical examination without abnormal findings (Z00.00) Active confirmed Problem History and physical examination, insurance (5824493) Encounter for examination for insurance purposes (Z02.6) Active confirmed Problem Screening for malignant neoplasm of prostate (423666403) Encounter for screening for malignant neoplasm of prostate (Z12.5) Active confirmed Problem Vaccination given (112743372) Encounter for immunization (Z23) Active confirmed Problem Hand joint pain (608812425) Pain in joints of unspecified hand (M25.549) Active confirmed Problem Spinal stenosis of lumbar region (97965661) Spinal stenosis, lumbar region without neurogenic claudication (M48.061) Active confirmed Problem Postprocedural states (534665228) Other specified postprocedural states (Z98.890) Active confirmed Problem Low back pain (056437985) Low back pain, unspecified (M54.50) Active confirmed Problem Chronic pain (02317162) Other chronic pain (G89.29) Inactive confirmed Problem Cellulitis and abscess of face (554823939) Cellulitis and abscess of face (682.0) Problem resolved confirmed Problem Cellulitis and abscess of upper arm (919492549) Cellulitis and abscess of upper arm and forearm (682.3) Problem resolved confirmed Problem Elevated blood pressure reading without diagnosis of hypertension (910306886) Elevated blood pressure reading without diagnosis of hypertension (796.2) 017 Problem resolved confirmed Problem Injury of finger (65505009) Injury, other and unspecified, finger (959.5) 017 Problem resolved confirmed Problem Requires influenza virus vaccination (251639952) Need for prophylactic vaccination and inoculation, Influenza (V04.81) 016 Problem resolved confirmed Problem Retained glass fragment foreign body (disorder) (234290107450168) Retained glass fragments (V90.81) Problem resolved confirmed Problem Lipoma of skin and subcutaneous tissue of trunk (579878376) Benign lipomatous neoplasm of skin and subcutaneous tissue of trunk (D17.1) Problem resolved confirmed Problem Cellulitis and abscess of face (069677940) Cutaneous abscess of face (L02.01) 019 Problem resolved confirmed Problem Cellulitis of finger of left hand (75684268316386800 ) Cellulitis of left finger (L03.012) Problem resolved confirmed Problem Cellulitis of right upper limb (44619753755149107 ) Cellulitis of right upper limb (L03.113) Problem resolved confirmed Problem Cellulitis of left upper limb (01673405640814704 ) Cellulitis of left upper limb (L03.114) 017 Problem resolved confirmed Problem Pruritus (723605985) Pruritus, unspecified (L29.9) Problem resolved confirmed Problem Pain of right shoulder region (finding) (9792411102) Pain in right shoulder (M25.511) Problem resolved confirmed Problem Low back pain (434836148) Low back pain (M54.5) 019 Problem resolved confirmed Problem Pain in thoracic spine (721788113) Pain in thoracic spine (M54.6) 021 Problem resolved confirmed Problem Pain in left arm (659203631) Pain in left arm (M79.602) 10/24/2 018 Problem resolved confirmed Problem Elevated blood pressure reading without diagnosis of hypertension (804043646) Elevated blood-pressure reading, without diagnosis of hypertension (R03.0) Problem resolved confirmed Problem Localized swelli ng, mass and lump, trunk (R22.2) Problem resolved confirmed Problem Nonvenomous insect bite of scapular region without infection (50064035) Insect bite (nonvenomous) of left upper arm, initial encounter (S40.862A) Problem resolved confirmed Problem Nonvenomous insect bite of forearm without infection (3715063) Insect bite (nonvenomous) of right forearm, initial encounter (S50.861A) Problem resolved confirmed Problem Contusion of finger (73541409) Contusion of right thumb with damage to nail, initial encounter (S60.111A) Problem resolved confirmed Problem Insect bite (nonvenomous) of left little finger, initial encounter (S60.467A) Problem resolved confirmed Problem Laceration witho ut foreign body of right little finger without damage to nail, initial encounter (S61.216A) Problem resolved confirmed Problem Laceration with foreign body of right little finger without damage to nail, subsequent encounter (S61.226D) Problem resolved confirmed Problem Unspecified open wound of unspecified finger with damage to nail, initial encounter (S61.309A) Problem resolved confirmed Problem Open wound of finger (561432646) Unspecified open wound of unspecified finger with damage to nail, subsequent encounter (S61.309D) Problem resolved confirmed Problem Bite of nonvenomous arthropod (555630486) Bitten or stung by nonvenomous insect and other nonvenomous arthropods, initial encounter (W57.XXXA) Problem resolved confirmed Problem Problem, abnormal examination (14015371) Encounter for general adult medical examination with abnormal findings (Z00.01) Problem resolved confirmed Problem Retained glass fragment foreign body (disorder) (202034086584135) Retained glass fragments (Z18.81) 02/25/2 019 Problem resolved confirmed Vital Signs Heart Rate 75 /min 10/29/2024 Temperature 98.6 degrees Fahrenheit 10/29/2024 Respiratory Rate 18 /min 09/05/2024 Height-cm 182.88 cm 10/29/2024 Blood pressure diastolic 76 mm Hg 10/29/2024 Oximetry 98 % 10/29/2024 Weight-kg 79.92 kg 10/29/2024 Height 72.00 in 10/29/2024 Blood pressure systolic 136 mm Hg 10/29/2024 Weight 176.2 lbs 10/29/2024 BMI 23.89 kg/m2 10/29/2024 Encounters Encounter Location Date Provider Diagnosis [address] [address] 11/01/2023 Provider Migration Spinal stenosis, lumbar region without neurogenic claudication M48.061 ; Essential (primary) hypertension I10 ; Other hemoglobinopathies D58.2 and Hyperlipidemia, unspecified E78.[address] [address] 11/06/2023 Dr. Veronica Ibarra Rash and other nonspecific skin eruption R21 ; Foreign body in cornea, right eye, initial encounter T15.01XA and Injury of conjunctiva and corneal abrasion without foreign body, right eye, initial encounter S05.01XA [address] [address] 11/08/2023 Dr. Cesar Matta Encounter for immunization Z23 ; Chronic viral hepatitis C B18.2 ; Emphysema, unspecified J43.9 ; Male erectile dysfunction, unspecified N52.9 ; Essential (primary) hypertension I10 ; Unspecified cirrhosis of liver K74.60 and Encounter for general adult medical examination without abnormal findings Z00.[address] [address] 11/16/2023 Provider Migration Paresthesia of skin R20.2 and Other specified symptoms and signs involving the circulatory and respiratory systems R09.[address] [address] 02/13/2024 Provider Migration Paresthesia of skin R20.2 and Spinal stenosis, lumbar region without neurogenic claudication M48.[address] [address] 02/16/2024 Dr. Cesar Matta Pain in right elbow M25.521 and Other enthesopathies, not elsewhere classified M77.[address] [address] 02/20/2024 Provider Migration Pain in left shoulder M25.[address] [address] 03/07/2024 Veronica Adler Unspecified injury o f left shoulder and upper arm, initial encounter S49.92XA and Pain in left shoulder M25.[address] [address] 05/14/2024 Veronica Adler Pain in left shoulde r M25.512 and Complete tear of left rotator cuff, unspecified whether traumatic M75.[address] [address] [facility] R[facility].1 an d Emphysema, unspecified J43.[address] [address] 09/05/2024 [facility] Hyperlipidemia, unspecified E78.5 ; Essential (primary) hypertension I10 ; Chronic viral hepatitis C B18.2 ; Encounter for general adult medical examination without abnormal findings Z00.00 ; Encounter for screening for malignant neoplasm of prostate Z12.5 and Male erectile dysfunction, unspecified N52.[address] [address] 10/29/2024 Veronica Adler Visual disturbance H 53.9 and Tobacco abuse Z72.[address] [address] 03/30/2024 Provider Migration [address] [address] 03/31/2024 Provider Migration [address] [address] 05/14/2024 Dr. Cesar Matta [address] [address] 08/19/2024 Dr. Cesar Matta [address] [address] 09/05/2024 Isma Katz Chronic viral hepati tis C B18.[address] [address] 09/13/2024 Isma Meraland Hyperlipidemia, unspecified E78.[address] [address] 10/28/2024 Dr. Cesar Matta Assessments Encounter Date Diagnosis (ICD Code) Assessment Notes Treatment Notes Treatment Clinical Notes Section Notes 09/13/2024 Hyperlipidemia, unspecified (ICD-10 - E78.5) 09/05/2024 Chronic viral hepatitis C (ICD-10 - B18.2) 09/05/2024 Hyperlipidemia, unspecified (ICD-10 - E78.5) Checking lipids today, on statin, may increase dose if lipids increasing. 09/05/2024 Essential (primary) hypertension (ICD-10 - I10) BP controlled on 20mg lisinopril, recommend regular monitoring at home. 10/29/2024 Tobacco abuse (ICD-1 0 - Z72.0) 10/29/2024 Visual disturbance (ICD-10 - H53.9) - Visual symptoms possibly related to neurological vs. cardiac vs. vascular etiology; concern for TIA or stroke. High risk due to personal and family history and current smoker. - Recommendation for urgent evaluation in the emergency department at [facility] (per PT request) with neurology and cardiology access. - Plan to call report to ER and advise preparation for possible overnight stay. Need for MRI brain, Echo/EKG, Carotid US, labs etc. - Will f/u with phone call tomorrow 10/30 for update. - Patient escorted to [facility] by . 06/05/2024 Acute cough (ICD-10 - R05.1) 03/07/2024 Pain in left shoulde r (ICD-10 - M25.512) 03/07/2024 Unspecified injury o f left shoulder and upper arm, initial encounter (ICD-10 - S49.92XA) 02/16/2024 Pain in right elbow (ICD-10 - M25.521) 02/16/2024 Other enthesopathies , not elsewhere classified (ICD-10 - M77.8) 11/08/2023 Chronic viral hepatitis C (ICD-10 - B18.2) 11/08/2023 Essential (primary) hypertension (ICD-10 - I10) 11/08/2023 Emphysema, unspecified (ICD-10 - J43.9) 11/08/2023 Unspecified cirrhosi s of liver (ICD-10 - K74.60) 11/08/2023 Male erectile dysfunction, unspecified (ICD-10 - N52.9) 11/08/2023 Encounter for genera l adult medical examination without abnormal findings (ICD-10 - Z00.00) 11/08/2023 Encounter for immunization (ICD-10 - Z23) 11/06/2023 Rash and other nonspecific skin eruption (ICD-10 - R21) 11/06/2023 Injury of conjunctiv a and corneal abrasion without foreign body, right eye, initial encounter (ICD-10 - S05.01XA) 11/06/2023 Foreign body in cornea, right eye, initial encounter (ICD-10 - T15.01XA) 05/14/2024 Pain in left shoulde r (ICD-10 - M25.512) 05/14/2024 Complete tear of lef t rotator cuff, unspecified whether traumatic (ICD-10 - [...] physical documentation completed to be faxed to [employer] and [facility] in [place]. - Monitor for any changes or additional requirements from [employer] or the surgeon. 02/20/2024 Pain in left shoulde r (ICD-10 - M25.512) 02/13/2024 Paresthesia of skin (ICD-10 - R20.2) 02/13/2024 Spinal stenosis, lumbar region without neurogenic claudication (ICD-10 - M48.061) 11/16/2023 Other specified symptoms and signs involving the circulatory and respiratory systems (ICD-10 - R09.89) 11/16/2023 Paresthesia of skin (ICD-10 - R20.2) BLE 11/01/2023 Other hemoglobinopathies (ICD-10 - D58.2) 11/01/2023 Hyperlipidemia, unspecified (ICD-10 - E78.5) 11/01/2023 Essential (primary) hypertension (ICD-10 - I10) 11/01/2023 Spinal stenosis, lumbar region without neurogenic claudication (ICD-10 - M48.061) 09/05/2024 Chronic viral hepatitis C (ICD-10 - B18.2) Patient notes he has not seen GI in at least a year stating they no longer need to see him. Reviewed note from 2022 which indicated further imaging and labs were to be completed including HCC screen with liver US and EGD in 2024 for esophageal varices. Will send request for further notes from GI. 06/05/2024 Emphysema, unspecified (ICD-10 - J43.9) Initate steroid taper, azithromycin, and albuterol inhaler. In acute exacerbation. Discussed risk and benefit of meds. Patient stopped smoking 3 weeks ago to be able to undergo upcoming procedure, recommend continuing cessation s/p surgery. Call or return for worsening symptoms with treatment. 09/05/2024 Encounter for genera l adult medical examination without abnormal findings (ICD-10 - Z00.00) 09/05/2024 Encounter for screening for malignant neoplasm of prostate (ICD-10 - Z12.5) 09/05/2024 Male erectile dysfunction, unspecified (ICD-10 - N52.9) Sildenafil not effective anymore, switching to tadalafil, discussed risk and benefits of med. 10/29/2024 Other LEONIDAS [place] called report to Dr. Blake at [facility]. Pt. arriving with in [place] in approx 1 hr. Plan Of Treatment Pending Test Test Name Order Date Ultrasound : Abdomen 09/05/2024 Insurance Providers Payer Name Payer Address Payer Phone Subscriber Number Group Number Insured Name Patient Relationship to Insured Coverage Start Date Coverage End Date [facility] [address] [address] [place] [address] [id number] Daniele Hurtado Self - patient is the insured 4 4 [employer] [address] [place] [address] [id number] Daniele Hurtado Self - patient is the insured 5 [employer] Supplement [address] [place] [address] [id number] Daniele Hurtado Self - patient is the insured 5 Medical (General) History Surgical History Surgery Date(Month/Year) back surgery ,notes : L4-5 a nd L5-S1 decompressive Lumbar Laminectomy Appendectomy ,notes : Age 4 _ Steroid injection ,notes : L4, L5 2021 injection-trigger point 09/06/21 EGD ,notes : small <5mm esop hageal varices, portal hypertensive gastropathy. Repeat in 2 years. Placido escalanterichristopher- Dr. Telles. 11/02/[address] Simons 07/10/24
--- NOTE | 2024-10-29 14:44 | ECG_ITS ---
Test Date: 2024-10-29 15:13:26 Measurements Intervals [place] Rate: P: 0 WI: 0 QRS: 0 QRSD: 0 T: 0 QT: 0 QTc: 0 Interpretive Statements NORMAL SINUS RHYTHM POOR R-WAVE PROGRESSION IN THE ANTERIOR PRECORDIAL LEADS Compared to ECG 06/27/2024 13:11:03 Sinus rhythm no longer present Electronically Signed On 10-29-2024 18:13:42 CDT by Gurpreet Barrientos
--- NOTE | 2024-10-29 15:13 | ED_ITS ---
HPI - Eye Problem General Chief complaint: Eye Problems Stated complaint: L. eye vision changes a couple months Time Seen by Provider: 10/29/24 14:42 History of Present Illness HPI Narrative: 64-year-old male presenting to the emergency department for evaluation of left- sided eye vision problems. Patient states the symptoms have been intermittent in nature for several months and he has already been evaluated by an field crop i farmworker yesterday and was referred to his primary care provider for further evaluation of a suspected TIA versus stroke. Patient presents to the emergency department today for evaluation after he went to his regular doctor who agreed that he had signs and symptoms of potential stroke or mini-stroke causing his visual deficits and needed to come to the hospital for evaluation. No history of stroke or TIA, no neck pain, chest pain, headache, nausea, weakness. No trauma or injury. He states that his symptoms are consisting only of left lateral blurry vision intermittent for up to 10 minutes at a time before spontaneously resolving. No pain associated with vision loss. Focal to the left eye and only to the lateral parietal visual jules. No migraine or headaches. Takes a baby aspirin but no other antiplatelets or anticoagulants. No symptoms presently of any visual loss. NIH 0. Related Data Home Medications ?Medication ?Instructions ?Recorded ?Confirmed ?Last Taken ?Type ibuprofen 200 mg capsule 400 mg PO Q6H PRN PAIN 10/21/20 10/29/24 10/30/20 History albuterol sulfate 90 mcg/actuation 2 puff inhalation PRN COUGH 06/27/24 10/29/24 Unknown History aerosol inhaler lisinopril 20 mg tablet 20 mg PO DAILY 06/27/24 10/29/24 07/09/24 History rosuvastatin 10 mg tablet 10 mg PO HS 06/27/24 10/29/24 07/09/24 History sildenafil 100 mg tablet 100 mg PO PRN ERECTILE DYSFUNCTION 06/27/24 10/29/24 Unknown History aspirin 81 mg tablet,delayed 81 mg PO DAILY 07/10/24 10/29/24 07/07/24 History release Allergies Allergy/AdvReac Type Severity Reaction Status Date / Time tramadol Allergy Hives Verified 10/29/24 13:14 Review of Systems 2 Review of Systems: As reviewed above in HPI [facility] Past Medical History Medical History Shingles Hypertension HLD (hyperlipidemia) COPD (chronic obstructive pulmonary disease) Surgical History Surgical History History of spinal surgery History of appendectomy Family History Family History Father , age 70 Acute myocardial infarction Mother , age 70 Acute myocardial infarction Other Heart disease Social History Social History Smoking packs per day: 1 Smoking cigarettes per day: 20.0 Years smoked: 48 Smoking pack-years: 48.00 Smoking status: Current every day smoker Tobacco type: cigarettes Second hand tobacco smoke exposure: Yes Additional smoking assessment comments: QUIT 05/11/24.STARTED AGAIN 06/20/24 1-2 CIGARETTS DAY Alcohol intake: current Drinks per week: 7 Alcohol use details: BEER Substance use: current Substance use type: marijuana Other substance usage details: daily Last use: 06/27/24 Do You Feel Safe in your Home?: Yes Lack of Transportation: No Lack of Food: Never True Current Housing: I Have Housing Concerned About Future Housing: No Difficulty Paying Gas/Electric Bills: No Difficulty Paying for Meds: No Currently Unemployed: No Education: Grade School Difficulty w/ Childcare or Family Care: No Living arrangements: with family 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 Mucous membranes moist. NECK: Supple. CHEST: [Clear to auscultation. No respiratory distress.] HEART: [Regular rate and rhythm]. No murmur heard. [Normal peripheral pulses.] ABDOMEN: [Soft, nondistended], [nontender], [No rigidity or guarding] EXTREMITIES: Normal range of motion. [No edema.] SKIN: Warm, dry, no rash. NEURO: [No focal deficits]. Alert and oriented [x3.] PSYCH: [Normal mood and affect.] Course Vital Signs Vital signs: Vital Signs Temperature 36.8 C 10/29/24 13:12 Pulse Rate 76 10/29/24 13:12 Respiratory Rate 16 10/29/24 13:12 Blood Pressure 147/90 H 10/29/24 13:12 Pulse Oximetry 99 10/29/24 13:12 Temperature 36.8 C 10/29/24 20:41 Pulse Rate 92 10/29/24 20:41 Respiratory Rate 20 10/29/24 20:41 Blood Pressure 147/76 H 10/29/24 20:41 Pulse Oximetry 98 10/29/24 20:41 Oxygen Delivery Room Air 10/29/24 20:30 MDM - Eye Problem MDM Narrative Medical decision making narrative: 64-year-old male presenting to the emergency department for evaluation of left- sided eye vision problems. Patient states the symptoms have been intermittent in nature for several months and he has already been evaluated by an field crop i farmworker yesterday and was referred to his primary care provider for further evaluation of a suspected TIA versus stroke. Patient presents to the emergency department today for evaluation after he went to his regular doctor who agreed that he had signs and symptoms of potential stroke or mini-stroke causing his visual deficits and needed to come to the hospital for evaluation. No history of stroke or TIA, no neck pain, chest pain, headache, nausea, weakness. No trauma or injury. He states that his symptoms are consisting only of left lateral blurry vision intermittent for up to 10 minutes at a time before spontaneously resolving. No pain associated with vision loss. Focal to the left eye and only to the lateral parietal visual jules. No migraine or headaches. Takes a baby aspirin but no other antiplatelets or anticoagulants. No symptoms presently of any visual loss. NIH 0. Given patient's clinical historical features without any symptoms at this time he very well might be having TIA or stroke-like symptoms causing his visual deficits although unclear location of lesion potential from Neuro anatomy perspective since the visual deficit is focal monocular parietal visual field which is not a classical finding. CT head and CT angiography of the head neck was ordered as well as cardiac workup, EKG and chest x-ray. Placed on pvc monitor and re-evaluated frequently. Currently asymptomatic with NIH of 0. CT and CT angiography shows moderate narrowing of the internal carotid arteries at the cavernous sinus but no otherwise acute findings. Patient remains asymptomatic during re-evaluations. I discussed the case with Dr. Kiran from neurology and he recommended ordering an MRI with and without contrast for further evaluation and would even recommend getting a spinal tap on inpatient basis after MRI. This was relayed to the patient and he was comfortable with admission. Spoke to the hospitalist team who accepted him to a telemetry monitored bed at this time. MRI ordered. Medical Records Attestation: I reviewed the patient's medical records. Lab Data Attestation: I reviewed the patient's lab results. 10/29/24 15:07 10/29/24 15:06 Labs: Lab Results 10/29/24 10/29/24 Range/Units 15:06 15:07 WBC 10.4 H (4.5-10.0) K/mm3 RBC 6.04 (4.6-6.20) M/mm3 Hgb 18.9 H (14.0-18.0) g/dL Hct 56.4 H (42.0-52.0) % MCV 93.4 (80-100) fl MCH 31.3 (26-34) pg MCHC 33.5 (32-36) g/dl RDW 12.8 (11.5-14.5) % Plt Count 265 (150-375) k/mm3 MPV 9.4 (7.4-10.4) fl Immature Gran % (Auto) 0.4 (0-0.5) % Neut % (Auto) 60.7 (45.5-73.1) % Lymph % (Auto) 25.5 (18.3-44.2) % [place] % (Auto) 6.4 (2.6-8.5) % Eos % (Auto) 6.1 H (0-4.4) % Baso % (Auto) 0.9 (0.2-1.2) % Lymph # (Auto) 2.64 (0.9-3.2) K/mm3 [place] # (Auto) 0.7 H (0.1-0.6) K/mm3 Eos # (Auto) 0.6 H (0-0.3) K/mm3 Baso # (Auto) 0.1 (0.0-0.1) K/mm3 Abs Immat Gran (auto) 0.04 H (0.00-0.031) K/mm3 Absolute Neuts (auto) 6.3 (1.3-6.7) K/mm3 Absolute Nucleated RBC 0.000 (0.0-0.012) K/mm3 Nucleated RBC % 0.0 (0.0-0.2) % Sodium 139 (137-145) mmol/L Potassium 4.1 (3.4-5.0) mmol/L Chloride 106 (98-107) mmol/L Carbon Dioxide 21 L (22-30) mmol/L Anion Gap 12 (4-12) mmol/L BUN 10 D (9-20) mg/dL Creatinine 0.78 (0.7-1.3) mg/dL Estim Creat Clear Calc 90 ml/min Estimated GFR > 60 (59 - ) Glucose 101 (65-110) mg/dL Calcium 10.2 (8.4-10.2) mg/dL Magnesium 2.1 (1.6-2.3) mg/dL Total Bilirubin 0.7 (0.2-1.3) mg/dL AST 44 (17-59) U/L ALT 29 (6-50) U/L Alkaline Phosphatase 77 (38-126) U/L Troponin I < 0.012 (0.000-0.034) ng/mL Total Protein 8.9 H (6.3-8.2) g/dL Albumin 5.0 (3.5-5.1) g/dL TSH (Reflex) 3.670 (0.465-4.68) uIU/mL Imaging Data Attestation: I personally reviewed and interpreted this imaging study as follows: My impression: Impressions Chest X-Ray 10/29/24 15:21 IMPRESSION: No acute cardiopulmonary pathology. Head/Neck CTA 10/29/24 16:24 IMPRESSION: 1. Moderate narrowing of the internal carotid arteries in the area of the cavernous sinus. Otherwise, Normal CTA head. 2. CTA neck. Percent stenosis per NASCET criteria is on the right side 10% and on the left 20%. Discharge Plan Discharge Clinical Impression: Transient vision disturbance of left eye Patient Disposition: Still a Patient Condition: Stable
[2024-10-29 15:23] LABS: Hematocrit 56.4 % (42.0-52.0); Hemoglobin 18.9 g/dL (14.0-18.0); Immature Granulocyte Percent A 0.4 % (0-0.5); Lymphocytes Absolute Auto 2.64 K/mm3 (0.9-3.2); Mean Corpuscular HGB Conc 33.5 g/dl (32-36); Mean Corpuscular Hemoglobin 31.3 pg (26-34); Mean Corpuscular Volume 93.4 fl (80-100); Nucleated Red Blood Cells Absolute Auto 0.000 K/mm3 (0.0-0.012); Nucleated Red Blood Cells Perc 0.0 % (0.0-0.2); Platelet Count Result 265 k/mm3 (150-375); Red Blood Count 6.04 M/mm3 (4.6-6.20); White Blood Count 10.4 K/mm3 (4.5-10.0)
[2024-10-29 15:35] LABS: Alanine Aminotransferase 29 U/L (6-50); Albumin Level 5.0 g/dL (3.5-5.1); Alkaline Phosphatase 77 U/L (38-126); Anion Gap 12 mmol/L (4-12); Aspartate Amino Transferase 44 U/L (17-59); Bilirubin,Total 0.7 mg/dL (0.2-1.3); Blood Urea Nitrogen 10 mg/dL (9-20); Calcium 10.2 mg/dL (8.4-10.2); Carbon Dioxide 21 mmol/L (22-30); Chloride 106 mmol/L (98-107); Estimated CRCL calculation 90 ml/min; Estimated Glomerular Filt Rate > 60; Glucose 101 mg/dL (65-110); Magnesium 2.1 mg/dL (1.6-2.3); Potassium 4.1 mmol/L (3.4-5.0); Sodium 139 mmol/L (137-145); Total Protein 8.9 g/dL (6.3-8.2)
--- OUTSIDE RECORDS SUMMARY | 2024-10-29 15:43 | XMS_ITS | Clinical Summary ---
Author Organization [facility] Address [address] [place] [address] Phone Care Team Providers Care Rest Room Maid Name Role Phone Provider, None Primary Care [...] of Treatment Not on file Care Teams Rest Room Maid Relationship Specialty Start Date End Date Provider, None [place] PCP - General 12/15/14
--- OUTSIDE RECORDS SUMMARY | 2024-10-29 15:43 | XMS_ITS ---
Author Organization Unknown Address [address] [place] [phone] Phone Care Team Providers Care Home Economics Expert Name Role Phone RICARDO MOORE Attending Unavailable [...] scalp, neck, axillae, external farshad 06/30/2022 completed 68337 CPT Plan of Treatment No Data Found Encounters Encounter Diagnosis Start Date Code Code Sys tem Laceration with foreign body of left hand, initial encounter 06/30/2022 SNOMED-CT Personal Care Team Section
--- OUTSIDE RECORDS SUMMARY | 2024-10-29 15:43 | XMS_ITS | Clinical Summary ---
Author Organization [facility] Address [address] [place] [address] Care Team Providers Care Sap Basis Administrator Name Role Phone Cesar Matta MD Primary [...] [place] Date Onset: 08/2005 Pulmonary emphysema ([facility]) 07/16/2011 Overview (12/06/2021): Note: Dr. Garcia Date Onset: 06/2005 Note: Dr. Garcia Date Onset: 06/2005 Immunizations Immunization Administration Dates Next Due Influenza (Generic) 02/11/2016 [...] Colorectal Cancer Screening Colonoscopy (10 Years) 1959 DTaP, Tdap and Td Vaccines (1 - Tdap) 1978 Pneumococcal Vaccine: 50+ Years (1 of 2 - PCV) 1978 Zoster Vaccines (1 of 2) 2009 RSV Immunization or 60+ Years (1 - Risk 60-74 years 1-dose series) 2019 COVID-19 Vaccine ( season) 2023 08/15/2020, 07/18/2020 AAA SCREENING 02/27/2024 Hepatitis C Completed 04/19/2023, [...] independent in ADLs upon discharge from hospital Renee Fountain RN Insurance [facility] [employer] Advance Directives * Full Code (Latest Code Status on File) Date Activated Date Inactivated Comments 12/20/2021 2:34 PM 12/21/2021 1:25 PM Care Teams Sap Basis Administrator Relationship Specialty Start Date End Date Cesar Matta MD [address] [place] [address] PCP - General PEDIATRICS 07/27/21
[2024-10-29 15:48] LABS: Troponin I < 0.012 ng/mL (0.000-0.034)
[2024-10-29 16:07] LABS: Thyroid Stimulating Hormone Reflex 3.670 uIU/mL (0.465-4.68)
--- NOTE | 2024-10-29 18:15 | PM.IMHP ---
H&P: HPI History of Present Illness Date/Time: 10/29/24 18:15 Chief Complaint: Vision Problem Narrative: 64 y/o M with PMH of COPD, hypertension, and hyperlipidemia presents here with a vision problem. The patient presents here from home for further evaluation of left-sided vision problems. He reports onset 2 months ago. He reports he has been experiencing left lateral blurry vision intermittently. He reports the blurred vision typically is confined to the periphery however has come [facility]p across vision previously. Describes the changes as waves like heat waves. Episodes last approximately 2 to 10 minutes. They will resolved without intervention. He has been evaluated by an detective and intelligence analyst yesterday, exam was benign at that time. His eye doctor referred him to his PCP for further evaluation of possible TIA versus CVA. Patient then followed up with his PCP who referred him to the emergency department for prompt evaluation of possible TIA versus stroke. The patient denies a history of stroke. His vision changes are not accompanied by focal weakness, focal numbness, dysarthria, dysphagia, gait disturbance, migraines/headaches, or dizziness. He is not currently on anti-platelet therapy or anticoagulation, does take a daily aspirin. Patient has a history of shingles, occurred in the 80's and on the right side of his trunk. Initial VS at presentation: 98.2? F, HR 76, R 16, 147/90, and 99% on RA. ED workup showed: WBC 10.4, hemoglobin 18.9, no significant electrolyte abnormalities, creatinine 0.78 and GFR >60, initial troponin negative, TSH within normal limits. CXR showed no acute cardiopulmonary pathology. Head/neck CTA showed moderate narrowing at the internal carotid arteries in the area of the cavernous sinus, otherwise normal CTA of the head. 10% stenosis of the right carotid bulb and 20% stenosis of the left carotid bulb. Review of Systems Review of Systems: All systems reviewed & are unremarkable except as noted in HPI and below PMFSH Past Medical History Medical History Shingles Hypertension HLD (hyperlipidemia) COPD (chronic obstructive pulmonary disease) Surgical History Surgical History History of spinal surgery History of appendectomy Family History Family History Father , age 70 Acute myocardial infarction Mother , age 70 Acute myocardial infarction Other Heart disease Social History Social History Smoking packs per day: 1 Smoking cigarettes per day: 20.0 Years smoked: 48 Smoking pack-years: 48.00 Smoking status: Current every day smoker Tobacco type: cigarettes Second hand tobacco smoke exposure: Yes Additional smoking assessment comments: QUIT 05/11/24.STARTED AGAIN 06/20/24 1-2 CIGARETTS DAY Alcohol intake: current Drinks per week: 7 Alcohol use details: BEER Substance use: current Substance use type: marijuana Other substance usage details: daily Last use: 06/27/24 Do You Feel Safe in your Home?: Yes Lack of Transportation: No Lack of Food: Never True Current Housing: I Have Housing Concerned About Future Housing: No Difficulty Paying Gas/Electric Bills: No Difficulty Paying for Meds: No Currently Unemployed: No Education: Grade School Difficulty w/ Childcare or Family Care: No Living arrangements: with family 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/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: 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 Spiritual care concerns: No Meds Home Medications and Allergies Home Medications ?Medication ?Instructions ?Recorded ?Confirmed ?Type ibuprofen 200 mg capsule 400 mg PO Q6H PRN PAIN 10/21/20 10/29/24 History albuterol sulfate 90 mcg/actuation 2 puff inhalation PRN COUGH 06/27/24 10/29/24 History aerosol inhaler lisinopril 20 mg tablet 20 mg PO DAILY 06/27/24 10/29/24 History rosuvastatin 10 mg tablet 10 mg PO HS 06/27/24 10/29/24 History sildenafil 100 mg tablet 100 mg PO PRN ERECTILE DYSFUNCTION 06/27/24 10/29/24 History aspirin 81 mg tablet,delayed 81 mg PO DAILY 07/10/24 10/29/24 History release Allergies Allergy/AdvReac Type Severity Reaction Status Date / Time tramadol Allergy Hives Verified 10/29/24 13:14 Vital Signs Vital Signs - 24 hr 10/29/24 13:12 10/29/24 15:17 10/29/24 15:31 Temperature 98.2 F Pulse Rate 76 74 72 Respiratory Rate 16 18 20 Blood Pressure 147/90 H 136/80 129/82 Pulse Oximetry 99 97 96 07/01/25 16:31 10/29/24 17:50 10/29/24 17:56 Temperature Pulse Rate 75 73 70 Respiratory Rate 18 12 Blood Pressure 122/80 114/81 Pulse Oximetry 96 97 Exam Const: General: comfortable and no acute distress Other: , male, nontoxic appearance HENMT: Face/Nose/Sinus: Normal nares present Mouth: Yes moist mucous membranes Eyes: General: appearance normal, both eyes and all related structures Sclera: sclerae normal Pupils: Equal, round and reactive pupils present EOM: EOMs intact bilaterally Resp: Effort & Inspection: normal respiratory effort Auscultation: clear to auscultation bilaterally Cardio: Rate: regular rate Rhythm: regular rhythm Other: S1-S2 present without murmur, rub, ectopy GI: Other: Abdomen soft, nondistended, nontender. Normoactive bowel sounds in all quadrants. Skin: General skin exam: normal color and no rashes or lesions noted Wounds: no wounds Neuro: Speech: normal speech Motor exam (neuro): 5/5 motor strength present throughout Sensory Exam: normal sensation Other: A&O x4, NIHSS 0. Extrem: General: normal to inspection Psych: Mental Status: mental status grossly normal Affect: normal affect Other: Good insight and judgment, pleasant H&P: Results Labs Labs: Short CBC 10/29/24 Range/Units 15:07 WBC 10.4 H (4.5-10.0) K/mm3 Hgb 18.9 H (14.0-18.0) g/dL Hct 56.4 H (42.0-52.0) % Plt Count 265 (150-375) k/mm3 [facility] 10/29/24 15:06 Sodium 139 Potassium 4.1 Chloride 106 Carbon Dioxide 21 L BUN 10 D Creatinine 0.78 Glucose 101 Calcium 10.2 Cardiac Enzymes 10/29/24 Range/Units 15:06 Troponin I < 0.012 (0.000-0.034) ng/mL Liver Function 10/29/24 Range/Units 15:06 Total Bilirubin 0.7 (0.2-1.3) mg/dL AST 44 (17-59) U/L ALT 29 (6-50) U/L Alkaline Phosphatase 77 (38-126) U/L Albumin 5.0 (3.5-5.1) g/dL Assessment and Plan Assessment and plan (1) Transient visual loss of left eye: Code(s): H53.122 - Transient visual loss, left eye Status: Acute Assessment and Plan: Intermittent left lateral blurred vision that has been ongoing and intermittent for the past several months. - admission for observation and telemetry - not candidate for thrombolytics due to timeframe or thrombectomy -> NIHSS 0 - CXR: No acute cardiopulmonary pathology - CTA: 1. Moderate narrowing of the internal carotid arteries in the area of the cavernous sinus. Otherwise, Normal CTA head. 2. CTA neck. Percent stenosis per NASCET criteria is on the right side 10% and on the left 20%. - neurology consulted - brain MRI w/wo ordered Awaiting MRI results, will expand work up dependent on it's results and neurology input. (2) Hypertension: Qualifiers: Hypertension type: primary hypertension Qualified Code(s): I10 - Essential (primary) hypertension Code(s): I10 - Essential (primary) hypertension Status: Chronic Assessment and Plan: - chronic, currently 147/76 - continue home medications: Lisinopril - monitor Plan Diet: Regular GI Prophylaxis: Not currently indicated DVT Prophylaxis: SCDs IV fluids: None Lines/Tubes: Peripheral IV Code Status: Full code Quality VTE Prophylaxis VTE prophylaxis: mechanical ordered Hospitalist MIPS Advance Care Plan I have confirmed that the patient's Advanced Care Plan is present, code status is documented, or surrogate decision maker is listed in patient medical record.: Yes Medication Reconciliation I have utilized all available resources to obtain, update and review the patients current medications (includes all prescriptions, OTC, herbals, cannabis, and nutritional supplements).: Yes
--- NOTE | 2024-10-29 19:15 | PC.NURSE ---
Report given to Fabiola LAUREN all questions answered
--- NOTE | 2024-10-29 20:39 | ADMGEN ---
This patient, Daniele Hurtado, was admitted to Medical Room 243-. Patient/family oriented to hospital policies and general routines including ID bracelet, bed and alarms, visiting hours, pain management, procedures, bathroom and other care routines, personal items, smoking policy, room service/diet, and visiting hours. Information on how to activate the Rapid Response Team has been discussed. Patient/Family are encouraged to report perceived risks to care and to ask questions if they do not understand what they are told or what they should do.
[2024-10-30] VITALS (9 sets, daily range): BP systolic 103–138; BP diastolic 65–85; PULSE 59–77; RESP 16–20; TEMP 36.7–37.2; O2SAT 95–99
--- NOTE | 2024-10-30 | ECHO_ITS ---
Patient Info Name: Daniele Hurtado Age: 64 years : 1960 Gender: Male Ht: 72 in Wt: 166 lbs BSA: 1.95 m2 HR: 72 bpm BP: 138 / 85 mmHg Heart Rhythm: Sinus Rhythm Technical Quality: Fair Exam Date: 10/30/2024 3:27 PM Patient Status: I Admit Date: 10/30/2024 Exam Type: CA echo dop bubble study w con Complete two-dimentional, color flow and Doppler transthoracic echocardiogram is performed with agitated saline and with contrast to opacify the left ventricle and to improve the delineation of the left ventricle endocardial borders. Staff Referring Physician: Sarah Pitt Electrician Outside: Sweta Carlisle Attending Provider: Sarah Pitt Contrast/Agitated Saline Contrast/Ag. Saline: Agitated Saline Amount: 20.00 ml Existing IV Access: Yes IV Access Condition: patent with no signs of infiltration Contrast/Ag. Saline: Definity Amount: 2.00 ml Administered By: Sweta Carlisle Existing IV Access: Yes IV Access Condition: patent with no signs of infiltration Summary 1. Definity contrast administered improved wall motion interpretation. 2. Left ventricular chamber dimension is normal. 3. Left ventricular systolic function is normal, estimated at 60-65. 4. The left ventricular diastolic function is grade I diastolic dysfunction. 5. E/e' 8 is minimally elevated. 6. No pulmonary hypertension, estimated pulmonary arterial systolic pressure is 24 mmHg. Left Ventricle E/e' 8 is minimally elevated. Left ventricular chamber dimension is normal. Left ventricular systolic function is normal, estimated at 60-65. The left ventricular diastolic function is grade I diastolic dysfunction. Definity contrast administered improved wall motion interpretation. Right Ventricle Right ventricular chamber dimension is normal. Right ventricular systolic function is normal and with normal TAPSE 2.0 cm. Left Atria Left atrial chamber dimension is normal. Right Atria Right atrial chamber dimension is normal. Atrial Septum Intact interatrial septum visualized by 2D and agitated saline imaging. Agitated saline injection with and without valsalva maneuver opacified right side cardiac chambers without shunt to left side cardiac chambers. Aortic Valve The aortic valve is trileaflet. There is no aortic valve stenosis. There is no aortic valve regurgitation. Pulmonic Valve There is no pulmonic regurgitation. Mitral Valve There is no mitral valve stenosis. There is no mitral valve regurgitation. Tricuspid Valve There is no tricuspid valve regurgitation. No pulmonary hypertension, estimated pulmonary arterial systolic pressure is 24 mmHg. Pericardium/Pleural There is no pericardial effusion. Inferior Vena Cava Normal inferior vena cava with >50% collapse upon inspiration consistent with normal right atrial pressure, 5 mmHg. Aorta The aortic root size at the sinus of Valsalva is normal. Left Ventricular Outflow Tract Name Value Normal LVOT 2D LVOT Diameter 2.0 cm LVOT Doppler LVOT Peak Velocity 103 cm/s LVOT Peak Gradient 4 mmHg LVOT Mean Gradient 2 mmHg LVOT VTI 20 cm LVOT VTI/AV VTI Ratio 1.0 LVOT Stroke Volume 63 ml LVOT CO 3.7 l/min LVOT CI 1.9 l/min/m2 Pulmonic Valve Name Value Normal RVOT Doppler RVOT Peak Velocity 85 cm/s RVOT Peak Gradient 3 mmHg PV Doppler PV Peak Velocity 111 cm/s PV Peak Gradient 5 mmHg Mitral Valve Name Value Normal MV Diastolic Function MV E Peak Velocity 57 cm/s MV A Peak Velocity 58 cm/s MV E/A 1.0 MV Decel Time (PW) 252 ms MV Annular TDI MV E/e' (Septal) 9.0 MV E/e' (Lateral) 8.1 MV E/e' (Average) 8.5 Tricuspid Valve Name Value Normal TV Regurgitation Doppler TR Peak Velocity 216 cm/s TR Peak Gradient 19 mmHg Estimated PAP/RSVP RA Pressure 5 mmHg <=5 PA Systolic Pressure 24 mmHg <36 RV Systolic Pressure 24 mmHg <36 TV Annular TDI TV Lateral Korina s' Velocity 11.0 cm/s >=9.5 Aorta Name Value Normal Ascending Aorta Ao Root Diameter (MM) 3.6 cm Ao Root Diam Index (MM) 1.8 cm/m2 Aortic Valve Name Value Normal AV Doppler AV Peak Velocity 114 cm/s AV Peak Gradient 5 mmHg AV Mean Gradient 2 mmHg AV VTI 20 cm AV Area (Cont Eq VTI) 3.1 cm2 >=3.0 AV Area (Cont Eq Adama) 2.8 cm2 AV DI (Adama) 0.90 AV Regurgitation 2D LVOT Area 3.1 cm2 Ventricles Name Value Normal LV Dimensions 2D/MM IVS Diastolic Thickness (2D) 0.8 cm 0.6-1.0 LVID Diastole (2D) 4.5 cm 4.2-5.8 LVIW Diastolic Thickness (2D) 0.8 cm 0.6-1.0 LVID Systole (2D) 2.8 cm 2.5-4.0 LVOT Diameter 2.0 cm LV Mass (2D Cubed) 109.61 g 88.00-224.00 LV Mass Index (2D Cubed) 56 g/m2 49-115 Relative Wall Thickness (2D) 0.36 <=0.42 LV Fractional Shortening/Ejection Fraction 2D/MM LV Fractional Shortening (2D) 37 % 25-43 LV EF (2D Teichholz) 68 % LV Diastolic Volume (4C MOD) 25 ml LV EF (4C MOD) 66 % LV Diastolic Volume (2C MOD) 23 ml LV EF (2C MOD) 65 % LV Diastolic Volume (BP MOD) 24 ml 62-150 LV Diastolic Volume Index (BP MOD) 12 ml/m2 34-74 LV Systolic Volume (BP MOD) 8 ml 21-61 LV Systolic Volume Index (BP MOD) 4 ml/m2 11-31 LV EF (BP MOD) 65 % 52-72 LV Diastolic Length (4C) 6.4 cm LV Systolic Length (4C) 5.3 cm LV Stroke Volume (4C MOD) 16 ml Atria Name Value Normal LA Dimensions LA Dimension (MM) 4.1 cm 3.0-4.0 LA Volume (4C A-L) 34 ml LA Volume (BP A-L) 38 ml RA Dimensions RA Area (4C) 16.1 cm2 <=18.0 Report Signatures
[2024-10-30 05:53] LABS: Hematocrit 54.7 % (42.0-52.0); Hemoglobin 18.6 g/dL (14.0-18.0); Immature Granulocyte Percent A 0.3 % (0-0.5); Lymphocytes Absolute Auto 2.18 K/mm3 (0.9-3.2); Mean Corpuscular HGB Conc 34.0 g/dl (32-36); Mean Corpuscular Hemoglobin 32.1 pg (26-34); Mean Corpuscular Volume 94.3 fl (80-100); Nucleated Red Blood Cells Absolute Auto 0.000 K/mm3 (0.0-0.012); Nucleated Red Blood Cells Perc 0.0 % (0.0-0.2); Platelet Count Result 258 k/mm3 (150-375); Red Blood Count 5.80 M/mm3 (4.6-6.20); White Blood Count 8.8 K/mm3 (4.5-10.0)
[2024-10-30 06:04] LABS: INR 1.0; Prothrombin Time 13.3 Seconds (11.1-14.7)
[2024-10-30 06:05] LABS: Partial Thromboplastin Time 32.7 Seconds (22.3-36.8)
[2024-10-30 06:07] LABS: Anion Gap 11 mmol/L (4-12); Blood Urea Nitrogen 11 mg/dL (9-20); Calcium 10.0 mg/dL (8.4-10.2); Carbon Dioxide 24 mmol/L (22-30); Chloride 105 mmol/L (98-107); Estimated CRCL calculation 81 ml/min; Estimated Glomerular Filt Rate > 60; Glucose 96 mg/dL (65-110); Potassium 4.1 mmol/L (3.4-5.0); Sodium 140 mmol/L (137-145)
--- NOTE | 2024-10-30 07:22 | PM.IMPN ---
Progress Note: A&P Assessment and Plan (1) Transient visual loss of left eye: Code(s): H53.122 - Transient visual loss, left eye Status: Acute Assessment and Plan: Intermittent left lateral blurred vision that has been ongoing and intermittent for the past several months. - admission for observation and telemetry - not candidate for thrombolytics due to timeframe or thrombectomy -> NIHSS 0 - CXR: No acute cardiopulmonary pathology - CTA: 1. Moderate narrowing of the internal carotid arteries in the area of the cavernous sinus. Otherwise, Normal CTA head. 2. CTA neck. Percent stenosis per NASCET criteria is on the right side 10% and on the left 20%. - neurology on board - brain MRI small old lacunar infarct at the right lentiform nucleus and right cerebral hemisphere plan to get MRI orbit per neurology recs. (2) Hypertension: Qualifiers: Hypertension type: primary hypertension Qualified Code(s): I10 - Essential (primary) hypertension Code(s): I10 - Essential (primary) hypertension Status: Chronic Assessment and Plan: - chronic, currently 147/76 - continue home medications: Lisinopril - monitor (3) Leucocytosis: Code(s): D72.829 - Elevated white blood cell count, unspecified Status: Acute Assessment and Plan: improved continue to monitor (4) TIA (transient ischemic attack): Code(s): G45.9 - Transient cerebral ischemic attack, unspecified Status: Acute (5) Transient vision disturbance of left eye: Code(s): H53.9 - Unspecified visual disturbance Status: Acute (6) Shoulder pain, left: Code(s): M25.512 - Pain in left shoulder Status: Acute (7) BMI 25.0-25.9,adult: Code(s): Z68.25 - Body mass index [BMI] 25.0-25.9, adult Status: Acute Plan Diet: Regular GI Prophylaxis: Not currently indicated DVT Prophylaxis: SCDs IV fluids: None Lines/Tubes: Peripheral IV Code Status: Full code Subjective Date/time seen: 10/30/24 07:22 Interval history: per HPI: 64 y/o M with PMH of COPD, hypertension, and hyperlipidemia presents here with a vision problem. The patient presents here from home for further evaluation of left-sided vision problems. He reports onset 2 months ago. He reports he has been experiencing left lateral blurry vision intermittently. He reports the blurred vision typically is confined to the periphery however has come [facility] previously. Describes the changes as waves like heat waves. Episodes last approximately 2 to 10 minutes. They will resolved without intervention. He has been evaluated by an rubber and pounder yesterday, exam was benign at that time. His eye doctor referred him to his PCP for further evaluation of possible TIA versus CVA. Patient then followed up with his PCP who referred him to the emergency department for prompt evaluation of possible TIA versus stroke. The patient denies a history of stroke. His vision changes are not accompanied by focal weakness, focal numbness, dysarthria, dysphagia, gait disturbance, migraines/headaches, or dizziness. He is not currently on anti-platelet therapy or anticoagulation, does take a daily aspirin. Patient has a history of shingles, occurred in the 80's and on the right side of his trunk. Initial VS at presentation: 98.2? F, HR 76, R 16, 147/90, and 99% on RA. ED workup showed: WBC 10.4, hemoglobin 18.9, no significant electrolyte abnormalities, creatinine 0.78 and GFR >60, initial troponin negative, TSH within normal limits. CXR showed no acute cardiopulmonary pathology. Head/neck CTA showed moderate narrowing at the internal carotid arteries in the area of the cavernous sinus, otherwise normal CTA of the head. 10% stenosis of the right carotid bulb and 20% stenosis of the left carotid bulb. 10/30/24 patient was seen and examined at bedside. he is feeling fine. denies chest pain, SOB,abd pain,N/V. has episodes of vision blurriness. Neurology team on board. MRI brain showed old infarct. recommended to get MRI orbit. Review of Systems Review of Systems: All systems reviewed & are unremarkable except as noted in HPI and below Exam Const: General: comfortable and no acute distress Other: , male, nontoxic appearance HENMT: Face/Nose/Sinus: Normal nares present Mouth: Yes moist mucous membranes Eyes: General: appearance normal, both eyes and all related structures Sclera: sclerae normal Pupils: Equal, round and reactive pupils present EOM: EOMs intact bilaterally Resp: Effort & Inspection: normal respiratory effort Auscultation: clear to auscultation bilaterally Cardio: Rate: regular rate Rhythm: regular rhythm Other: S1-S2 present without murmur, rub, ectopy GI: Other: Abdomen soft, nondistended, nontender. Normoactive bowel sounds in all quadrants. Skin: General skin exam: normal color and no rashes or lesions noted Wounds: no wounds Neuro: Cranial nerves: Yes Equal, round and reactive pupils present Speech: normal speech Motor exam (neuro): 5/5 motor strength present throughout Sensory Exam: normal sensation Other: A&O x4, NIHSS 0. Extrem: General: normal to inspection Psych: Mental Status: mental status grossly normal Affect: normal affect Other: Good insight and judgment, pleasant Objective Data Vital Signs Vital Signs: Vital Signs - 24 hr 10/29/24 13:12 10/29/24 15:17 10/29/24 15:31 Temperature 98.2 F Pulse Rate 76 74 72 Respiratory Rate 16 18 20 Blood Pressure 147/90 H 136/80 129/82 Pulse Oximetry 99 97 96 Oxygen Delivery 10/29/24 16:31 10/29/24 17:50 10/29/24 17:56 Temperature Pulse Rate 75 73 70 Respiratory Rate 18 12 Blood Pressure 122/80 114/81 Pulse Oximetry 96 97 Oxygen Delivery 10/29/24 17:56 10/29/24 18:00 10/29/24 18:01 Temperature Pulse Rate 72 70 70 Respiratory Rate 15 21 H 18 Blood Pressure 137/85 128/75 Pulse Oximetry 99 97 97 Oxygen Delivery 10/29/24 18:15 10/29/24 18:30 10/29/24 18:31 Temperature Pulse Rate 68 68 71 Respiratory Rate 12 14 19 Blood Pressure 105/70 Pulse Oximetry 98 94 96 Oxygen Delivery 10/29/24 18:45 10/29/24 19:00 10/29/24 19:01 Temperature Pulse Rate 69 73 68 Respiratory Rate 18 21 H 26 H Blood Pressure 124/82 Pulse Oximetry 95 95 97 Oxygen Delivery 10/29/24 19:15 10/29/24 19:30 10/29/24 19:31 Temperature Pulse Rate 69 65 72 Respiratory Rate 19 15 14 Blood Pressure 141/85 H Pulse Oximetry 95 94 97 Oxygen Delivery 10/29/24 19:45 10/29/24 20:28 10/29/24 20:30 Temperature Pulse Rate 68 72 72 Respiratory Rate 22 H 14 14 Blood Pressure 141/85 H Pulse Oximetry 95 97 97 Oxygen Delivery Room Air 10/29/24 20:41 07/01/25 20:55 10/30/24 00:00 Temperature 98.2 F Pulse Rate 92 68 67 Respiratory Rate 20 Blood Pressure 147/76 H Pulse Oximetry 98 Oxygen Delivery 10/30/24 04:41 10/30/24 05:15 Temperature 98.3 F Pulse Rate 77 Respiratory Rate 20 Blood Pressure 138/85 Pulse Oximetry 97 98 Oxygen Delivery Room Air Intake/Output Intake/Output: Intake & Output 10/27/24 10/28/24 10/29/24 10/30/24 23:59 23:59 23:59 23:59 Intake Total 390 Balance 390 Meds/Results Medications: Active Medications Generic Name Dose Route Start Last Admin Trade Name Freq PRN Reason Stop Dose Admin Acetaminophen 650 mg 10/29/24 17:45 Acetaminophen 325 Mg Tablet PO Q4H PRN Mild Pain (1-3) or Fever Albuterol 2 puff 10/29/24 21:17 Albuterol Sulfate (*Sp) Aerosol 1 Puff INHALATION Q6HRT PRN Shortness Of Breath Or Wheezing Aspirin 81 mg 10/30/24 09:00 Aspirin 81 Mg Enteric Tablet PO DAILY [facility] Calcium Carbonate 200 mg 10/29/24 18:34 Calcium Carbonate (Tums) 500 Mg (200 Mg Elemental) PO Q6H PRN Indigestion Docusate Sodium 100 mg 10/29/24 18:34 Docusate Sodium 100 Mg Capsule PO Q12H PRN Constipation Ibuprofen 400 mg 10/29/24 21:22 Ibuprofen 400 Mg Tablet PO Q6H PRN Pain Rated 4-6 Lisinopril 20 mg 10/30/24 09:00 Lisinopril 20 Mg Tablet PO DAILY [facility] Ondansetron HCl 4 mg 10/29/24 18:34 Ondansetron Inj 4 Mg/2 Ml Vial IV PUSH Q6H PRN Nausea And Vomiting Rosuvastatin Calcium 10 mg 10/30/24 21:00 Rosuvastatin 10 Mg Tablet PO [facility] Radiology Results: ITS Impressions Chest X-Ray 10/29/24 15:21 IMPRESSION: No acute cardiopulmonary pathology. Head/Neck CTA 10/29/24 16:24 IMPRESSION: 1. Moderate narrowing of the internal carotid arteries in the area of the cavernous sinus. Otherwise, Normal CTA head. 2. CTA neck. Percent stenosis per NASCET criteria is on the right side 10% and on the left 20%. Labs Labs: Laboratory Results - last 24 hr 10/29/24 10/29/24 10/30/24 15:06 15:07 05:00 WBC 10.4 H 8.8 RBC 6.04 5.80 Hgb 18.9 H 18.6 H Hct 56.4 H 54.7 H MCV 93.4 94.3 MCH 31.3 32.1 MCHC 33.5 34.0 RDW 12.8 13.0 Plt Count 265 258 MPV 9.4 9.9 Immature Gran % (Auto) 0.4 0.3 Neut % (Auto) 60.7 60.5 Lymph % (Auto) 25.5 24.9 Riley % (Auto) 6.4 6.8 Eos % (Auto) 6.1 H 6.5 H Baso % (Auto) 0.9 1.0 Lymph # (Auto) 2.64 2.18 Riley # (Auto) 0.7 H 0.6 Eos # (Auto) 0.6 H 0.6 H Baso # (Auto) 0.1 0.1 Abs Immat Gran (auto) 0.04 H 0.03 Absolute Neuts (auto) 6.3 5.3 Absolute Nucleated RBC 0.000 0.000 Nucleated RBC % 0.0 0.0 PT 13.3 INR 1.0 APTT 32.7 Sodium 139 140 Potassium 4.1 4.1 Chloride 106 105 Carbon Dioxide 21 L 24 Anion Gap 12 11 BUN 10 D 11 Creatinine 0.78 0.85 Estim Creat Clear Calc 90 81 Estimated GFR > 60 > 60 Glucose 101 96 Calcium 10.2 10.0 Magnesium 2.1 Total Bilirubin 0.7 AST 44 ALT 29 Alkaline Phosphatase 77 Troponin I < 0.012 Total Protein 8.9 H Albumin 5.0 TSH (Reflex) 3.670 Quality VTE Prophylaxis VTE prophylaxis: mechanical ordered
--- NOTE | 2024-10-30 08:16 | PC.NURSE ---
Patient to MRI per wheelchair at 0814
[2024-10-30] MEDS: ASPIRIN 81 MG ENTERIC TABLET PO (09:20)
--- NOTE | 2024-10-30 11:26 | P.CONNEU_ITS ---
Assessment and Plan Assessment and plan (1) TIA (transient ischemic attack): Code(s): G45.9 - Transient cerebral ischemic attack, unspecified Status: Acute Plan 1. Episodes of recurrent visual difficulties described only in left eye with normal neurological examination and normal evaluation, particularly normal MRI of the brain negative CTA of the head and neck, considering the patient has come to the hospital through the ER with the possibility of the TIA echocardiogram can be done before his discharge to to home. Can take aspirin 81mg daily and follow with the family physician as well as his eye physician so that he can keep an eye because of the monocular problem. MRI does not show any demyelinating phenomenon, we can obtain the MRI of the orbit just to make sure the read to orbital structures are normal. Any question arises please do not hesitate to contact me. Consult date: 10/30/24 HPI: Daniele Hurtado is a 64 year old maleAdmitted to the hospital through the emergency room for the complaints of left eye visual difficulties Of intermittent nature over the last several months and with information that he has been evaluated by an technical administrator and was referred to the primary physician then to the ER for the possible TIA. Patient gave no history of associated cervical discomfort, chest pain, or headaches, weakness or numbness of 1 side or other side. He complained of blurriness of the vision on the left intermittently lasting for [id number] at a time. Patient has been taking lisinopril 20mg daily, rosuvastatin 10mg at night, aspirin 81mg daily, he is allergic to tramadol, and he does have ongoing history of 1. Hyperlipidemia 2. COPD 3. Hypertension 4. History of spinal surgeries in the past 5. Years smoked 48 with smoking pack years 48 and currently everyday smoker 6. Currently alcohol intake 7 drinks per week. On initial exam in the emergency room there were no gross abnormal findings. Vital signs were normal. CBC was normal. BMP was normal. And the mast scan was normal chest x-ray was negative. Head and neck CTA revealed moderate narrowing of the internal carotid arteries that is 20% but no carotid dissection. MRI of the brain done today documented small old lacunar infarct at the right lentiform nucleus and right cerebral hemisphere but otherwise no major stroke. Patient has been taking aspirin on a daily basis Review of Systems 2 Review of Systems: All systems reviewed & are unremarkable except as noted in HPI and below PMFSH Past Medical History Medical History Shingles Hypertension HLD (hyperlipidemia) COPD (chronic obstructive pulmonary disease) Surgical History Surgical History History of spinal surgery History of appendectomy Family History Family History Father , age 70 Acute myocardial infarction Mother , age 70 Acute myocardial infarction Other Heart disease Social History Social History Smoking packs per day: 1 Smoking cigarettes per day: 20.0 Years smoked: 48 Smoking pack-years: 48.00 Smoking status: Current every day smoker Tobacco type: cigarettes Second hand tobacco smoke exposure: Yes Additional smoking assessment comments: QUIT 05/11/24.STARTED AGAIN 06/20/24 1-2 CIGARETTS DAY Alcohol intake: current Drinks per week: 7 Alcohol use details: BEER Substance use: current Substance use type: marijuana Other substance usage details: daily Last use: 06/27/24 Do You Feel Safe in your Home?: Yes Lack of Transportation: No Lack of Food: Never True Current Housing: I Have Housing Concerned About Future Housing: No Difficulty Paying Gas/Electric Bills: No Difficulty Paying for Meds: No Currently Unemployed: No Education: Grade School Difficulty w/ Childcare or Family Care: No Living arrangements: with family Occupation/Education: 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 Spiritual care concerns: No Meds Home Medications and Allergies Home Medications ?Medication ?Instructions ?Recorded ?Confirmed ?Type ibuprofen 200 mg capsule 400 mg PO Q6H PRN PAIN 10/21/20 10/29/24 History albuterol sulfate 90 mcg/actuation 2 puff inhalation PRN COUGH 06/27/24 10/29/24 History aerosol inhaler lisinopril 20 mg tablet 20 mg PO DAILY 06/27/24 10/29/24 History rosuvastatin 10 mg tablet 10 mg PO HS 06/27/24 10/29/24 History sildenafil 100 mg tablet 100 mg PO PRN ERECTILE DYSFUNCTION 06/27/24 10/29/24 History aspirin 81 mg tablet,delayed 81 mg PO DAILY 07/10/24 10/29/24 History release Allergies Allergy/AdvReac Type Severity Reaction Status Date / Time tramadol Allergy Hives Verified 10/29/24 13:14 Vital Signs Vital Signs - 24 hr 10/29/24 13:12 10/29/24 15:17 10/29/24 15:31 Temperature 36.8 C Pulse Rate 76 74 72 Respiratory Rate 16 18 20 Blood Pressure 147/90 H 136/80 129/82 Pulse Oximetry 99 97 96 Oxygen Delivery 10/29/24 16:31 10/29/24 17:50 10/29/24 17:56 Temperature Pulse Rate 75 73 70 Respiratory Rate 18 12 Blood Pressure 122/80 114/81 Pulse Oximetry 96 97 Oxygen Delivery 10/29/24 17:56 10/29/24 18:00 10/29/24 18:01 Temperature Pulse Rate 72 70 70 Respiratory Rate 15 21 H 18 Blood Pressure 137/85 128/75 Pulse Oximetry 99 97 97 Oxygen Delivery 10/29/24 18:15 10/29/24 18:30 10/29/24 18:31 Temperature Pulse Rate 68 68 71 Respiratory Rate 12 14 19 Blood Pressure 105/70 Pulse Oximetry 98 94 96 Oxygen Delivery 10/29/24 18:45 10/29/24 19:00 10/29/24 19:01 Temperature Pulse Rate 69 73 68 Respiratory Rate 18 21 H 26 H Blood Pressure 124/82 Pulse Oximetry 95 95 97 Oxygen Delivery 10/29/24 19:15 10/29/24 19:30 10/29/24 19:31 Temperature Pulse Rate 69 65 72 Respiratory Rate 19 15 14 Blood Pressure 141/85 H Pulse Oximetry 95 94 97 Oxygen Delivery 10/29/24 19:45 10/29/24 20:28 10/29/24 20:30 Temperature Pulse Rate 68 72 72 Respiratory Rate 22 H 14 14 Blood Pressure 141/85 H Pulse Oximetry 95 97 97 Oxygen Delivery Room Air 10/29/24 20:41 10/29/24 20:55 10/30/24 00:00 Temperature 36.8 C Pulse Rate 92 68 67 Respiratory Rate 20 Blood Pressure 147/76 H Pulse Oximetry 98 Oxygen Delivery 10/30/24 04:41 10/30/24 05:15 10/30/24 08:00 Temperature 36.8 C Pulse Rate 77 64 Respiratory Rate 20 Blood Pressure 138/85 Pulse Oximetry 97 98 Oxygen Delivery Room Air 10/30/24 09:10 Temperature Pulse Rate Respiratory Rate Blood Pressure Pulse Oximetry Oxygen Delivery Room Air Exam 2 Narrative: exam today revealed him to be awake alert in no obvious acute distress, speech not dysphasic not dysarthric not dysphonic, neck supple with no cervical bruit no thyromegaly no lymphadenopathy, heart regular with no murmur, lungs clear to auscultation with no rhonchi or crepitations, abdomen is soft nontender with normal bowel sounds, neurologically he was awake alert oriented, his speech not dysphasic not dysarthric not dysphonic, pupils round regular feels the vision full to finger confrontation, extraocular movements full with no nystagmus, facial sensation intact, face symmetrical, tongue in the oral cavity with no fasciculation uvula midline and motor examination revealed normal strength and tone in upper and lower extremities with no evidence of cerebellar deficit , no sensory deficit. Results Labs 10/30/24 05:00 10/30/24 05:00 Labs: Short CBC 10/29/24 10/30/24 Range/Units 15:07 05:00 WBC 10.4 H 8.8 (4.5-10.0) K/mm3 Hgb 18.9 H 18.6 H (14.0-18.0) g/dL Hct 56.4 H 54.7 H (42.0-52.0) % Plt Count 265 258 (150-375) k/mm3 BMP 10/29/24 10/30/24 15:06 05:00 Sodium 139 140 Potassium 4.1 4.1 Chloride 106 105 Carbon Dioxide 21 L 24 BUN 10 D 11 Creatinine 0.78 0.85 Glucose 101 96 Calcium 10.2 10.0 Cardiac Enzymes 10/29/24 Range/Units 15:06 Troponin I < 0.012 (0.000-0.034) ng/mL Liver Function 10/29/24 Range/Units 15:06 Total Bilirubin 0.7 (0.2-1.3) mg/dL AST 44 (17-59) U/L ALT 29 (6-50) U/L Alkaline Phosphatase 77 (38-126) U/L Albumin 5.0 (3.5-5.1) g/dL
[2024-10-30] MEDS: PERFLUTREN LIPID MICROSPHERES 1.5 ML VIAL DILUTED TO 10 ML TOTAL VOLUME IV PUSH (15:37)
--- NOTE | 2024-10-30 16:26 | IVDEFINITY ---
Prior to administration of IV Definity the patient was educated on the risks and benefits of the imaging enhancing agent including potential adverse side effects. The patient verbalized understanding. Allergies were verified. No exclusion criteria were identified and at least one of the following inclusion criteria were met: 1) physician request, 2) patient technically difficult to image (per the [place] [employer]chocardi[employer] guidelines of two or more segments not discernable within the apical view), or 3) questionable left ventricular function. ?
[2024-10-30] MEDS: ROSUVASTATIN 10 MG TABLET PO (20:45)
[2024-10-31] VITALS (7 sets, daily range): BP systolic 126–130; BP diastolic 66–67; PULSE 58–78; RESP 18; TEMP 36.7–36.8; O2SAT 95–96
[2024-10-31 05:33] LABS: Hematocrit 53.8 % (42.0-52.0); Hemoglobin 17.9 g/dL (14.0-18.0); Mean Corpuscular HGB Conc 33.3 g/dl (32-36); Mean Corpuscular Hemoglobin 31.3 pg (26-34); Mean Corpuscular Volume 94.1 fl (80-100); Platelet Count Result 237 k/mm3 (150-375); Red Blood Count 5.72 M/mm3 (4.6-6.20); White Blood Count 8.5 K/mm3 (4.5-10.0)
[2024-10-31 05:43] LABS: Anion Gap 11 mmol/L (4-12); Blood Urea Nitrogen 14 mg/dL (9-20); Calcium 9.9 mg/dL (8.4-10.2); Carbon Dioxide 23 mmol/L (22-30); Chloride 105 mmol/L (98-107); Estimated CRCL calculation 78 ml/min; Estimated Glomerular Filt Rate > 60; Glucose 94 mg/dL (65-110); Potassium 4.0 mmol/L (3.4-5.0); Sodium 139 mmol/L (137-145)
[2024-10-31] MEDS: ASPIRIN 81 MG ENTERIC TABLET PO (08:48)
--- NOTE | 2024-10-31 14:24 | P.DS_ITS ---
DS: Admitting Diagnosis Discharge Date 10/31/24 Admitting Diagnosis Blurry vision DS: Discharge Diagnosis Discharge Diagnosis (1) Transient visual loss of left eye: Code(s): H53.122 - Transient visual loss, left eye Status: Acute Assessment and Plan: Intermittent left lateral blurred vision that has been ongoing and intermittent for the past several months. - admission for observation and telemetry - not candidate for thrombolytics due to timeframe or thrombectomy -> NIHSS 0 - CXR: No acute cardiopulmonary pathology - CTA: 1. Moderate narrowing of the internal carotid arteries in the area of the cavernous sinus. Otherwise, Normal CTA head. 2. CTA neck. Percent stenosis per NASCET criteria is on the right side 10% and on the left 20%. - neurology on board - brain MRI small old lacunar infarct at the right lentiform nucleus and right cerebral hemisphere MRI orbit unremarkable patient needs follow up with railway equipment operator as outpatient (2) Hypertension: Qualifiers: Hypertension type: primary hypertension Qualified Code(s): I10 - Essential (primary) hypertension Code(s): I10 - Essential (primary) hypertension Status: Chronic Assessment and Plan: - chronic, currently 147/76 - continue home medications: Lisinopril - monitor (3) Leucocytosis: Code(s): D72.829 - Elevated white blood cell count, unspecified Status: Acute Assessment and Plan: improved continue to monitor (4) TIA (transient ischemic attack): Code(s): G45.9 - Transient cerebral ischemic attack, unspecified Status: Acute (5) Transient vision disturbance of left eye: Code(s): H53.9 - Unspecified visual disturbance Status: Acute (6) Shoulder pain, left: Code(s): M25.512 - Pain in left shoulder Status: Acute (7) BMI 25.0-25.9,adult: Code(s): Z68.25 - Body mass index [BMI] 25.0-25.9, adult Status: Acute DS: Summary Hospital Course Hospital Course: per HPI: 64 y/o M with PMH of COPD, hypertension, and hyperlipidemia presents here with a vision problem. The patient presents here from home for further evaluation of left-sided vision problems. He reports onset 2 months ago. He reports he has been experiencing left lateral blurry vision intermittently. He reports the blurred vision typically is confined to the periphery however has come usp across vision previously. Describes the changes as waves like heat waves. Episodes last approximately 2 to 10 minutes. They will resolved without intervention. He has been evaluated by an railway equipment operator yesterday, exam was benign at that time. His eye doctor referred him to his PCP for further evaluation of possible TIA versus CVA. Patient then followed up with his PCP who referred him to the emergency department for prompt evaluation of possible TIA versus stroke. The patient denies a history of stroke. His vision changes are not accompanied by focal weakness, focal numbness, dysarthria, dysphagia, gait disturbance, migraines/headaches, or dizziness. He is not currently on anti-platelet therapy or anticoagulation, does take a daily aspirin. Patient has a history of shingles, occurred in the 80's and on the right side of his trunk. Initial VS at presentation: 98.2? F, HR 76, R 16, 147/90, and 99% on RA. ED workup showed: WBC 10.4, hemoglobin 18.9, no significant electrolyte abnormalities, creatinine 0.78 and GFR >60, initial troponin negative, TSH within normal limits. CXR showed no acute cardiopulmonary pathology. Head/neck CTA showed moderate narrowing at the internal carotid arteries in the area of the cavernous sinus, otherwise normal CTA of the head. 10% stenosis of the right carotid bulb and 20% stenosis of the left carotid bulb. 10/30/24 has episodes of vision blurriness. Neurology team on board. MRI brain showed old infarct. recommended to get MRI orbit 10/31/24 patient was seen and examined at bedside. he is feeling fine. denies chest pain, SOB,abd pain,N/V. patient noted his blurry vision improving. MRI orbit unremarkable. Will discharge patient. he needs to follow with railway equipment operator as outpatient. Status at Discharge Overall status at discharge: patient is progressing back to baseline Time Spent with Patient Time attestation: Total time spent providing and/or coordinating discharge services: Time spent: Greater than 30 minutes Exam Const: General: comfortable and no acute distress Other: , male, nontoxic appearance HENMT: Face/Nose/Sinus: Normal nares present Mouth: Yes moist mucous membranes Eyes: General: appearance normal, both eyes and all related structures Sclera: sclerae normal Pupils: Equal, round and reactive pupils present EOM: EOMs intact bilaterally Resp: Effort & Inspection: normal respiratory effort Auscultation: clear to auscultation bilaterally Cardio: Rate: regular rate Rhythm: regular rhythm Other: S1-S2 present without murmur, rub, ectopy GI: Other: Abdomen soft, nondistended, nontender. Normoactive bowel sounds in all quadrants. Skin: General skin exam: normal color and no rashes or lesions noted Wounds: no wounds Neuro: Cranial nerves: Yes Equal, round and reactive pupils present Speech: normal speech Motor exam (neuro): 5/5 motor strength present throughout Sensory Exam: normal sensation Other: A&O x4, NIHSS 0. Extrem: General: normal to inspection Psych: Mental Status: mental status grossly normal Affect: normal affect Other: Good insight and judgment, pleasant DS: Data Data Completed and Pending Labs on day of discharge: Labs from last 24 hours 10/31/24 04:34 WBC 8.5 RBC 5.72 Hgb 17.9 Hct 53.8 H MCV 94.1 MCH 31.3 MCHC 33.3 RDW 13.1 Plt Count 237 MPV 9.6 Sodium 139 Potassium 4.0 Chloride 105 Carbon Dioxide 23 Anion Gap 11 BUN 14 Creatinine 0.89 Estim Creat Clear Calc 78 Estimated GFR > 60 Glucose 94 Calcium 9.9 Discharge Plan Discharge Attending physician on discharge: Sarah Pitt Consulting providers: Andrés Kiran Discharging Clinician: Sarah Pitt Anticipated Discharge Date/Time: 10/31/24 16:45 Patient Disposition: Home Activity: as tolerated Diet: heart healthy Discharge Instructions: follow with PCP in one week follow with railway equipment operator in 1-2 weeks continue daily ASA follow with MRI report as outpatient Patient Instructions: Antibiotic Form, Ischemic Stroke (DC) Patient Language: Italian Stand Alone Forms: General Discharge Information Follow-up/Referrals: Veronica Ibarra MD [Primary Care Provider] - 1 Week Discharge Medications: Continued ibuprofen 200 mg capsule 400 mg PO Q6H PRN (Reason: PAIN) lisinopril 20 mg tablet 20 mg PO DAILY rosuvastatin 10 mg tablet 10 mg PO HS sildenafil 100 mg tablet 100 mg PO PRN albuterol sulfate 90 mcg/actuation HFA aerosol inhaler 2 puff INHALATION PRN aspirin 81 mg tablet,delayed release (DR/EC) 81 mg PO DAILY Date of admission: 10/30/24 17:02 Primary Care Provider: Veronica Ibarra Admitting Provider: Madhav Michael Attending physician on admission: Sarah Pitt Condition: Stable Quality VTE Prophylaxis VTE prophylaxis: mechanical ordered
== END 2024-10-31 16:55 | disposition home or self-care (01) | DRG 123 ==
LOC: ANHED 15:41 → ANH3MEDSUR 18:41 → ANH2MED 19:28
PROVIDERS: Student in an Organized Health Care Education/Training Program; Admitting Provider Family Medicine; Emergency Provider Student in an Organized Health Care Education/Training Program; PCP Family Medicine; Visit Provider Internal Medicine
DX: H53.122 Transient visual loss, left eye (principal); G45.9 Transient cerebral ischemic attack, unspecified; I10 Essential (primary) hypertension; J44.9 Chronic obstructive pulmonary disease, unspecified; E78.5 Hyperlipidemia, unspecified; M25.512 Pain in left shoulder; F17.210 Nicotine dependence, cigarettes, uncomplicated; Z79.82 Long term (current) use of aspirin
CPT/HCPCS: 36415; 70496; 70498; 70540; 70553; 71045; 80048; 80053; 83735; 84443; 84484; 85025; 85027; 85610; 85730; 93005; 96374; 96375; 99285; A9270; A9579; C8929; G0378; Q9957; Q9967